=== PATIENT | female | born 1950 | race Caucasian/White ===

== ENCOUNTER 2020-07-05 10:02 | Outpatient (REF) | payer MEDICARE, OTHER, SELFPAY ==
[2020-07-05 11:23] LABS: MANUAL DIFF FLAG NO
[2020-07-05 11:45] LABS: Basophils Percent Auto 0.5 % (0-2); Eosinophils Absolute Auto 0.3 X10*3/uL (0.0-0.4); Eosinophils Percent Auto 5.3 % (0-4); Hematocrit 45.9 % (37-47); Hemoglobin 15.1 g/dl (12.0-16.0); Imm Gran Abs Auto 0.03 X10*3/uL (0.00-0.03); Imm Gran Pct Auto 0.5 % (0.0-0.4); Lymphocytes Absolute Auto 0.8 X10*3/uL (1.2-4.9); Mean Corpuscular HGB Conc 32.9 g/dl (31.0-35.0); Mean Corpuscular Volume 88.1 fL (80-98); Mean Platelet Volume 11.7 fL (9.4-12.3); Monocytes Absolute Auto 0.5 X10*3/uL (0.1-1.2); Monocytes Percent Auto 8.4 % (2-11); Neutrophils Absolute Auto 3.8 X10*3/uL (2.0-8.3); Neutrophils Percent Auto 70.3 % (45-73); Platelet Count 254 X10*3/uL (160-400); Red Blood Count 5.21 X10*6/uL (4.20-5.50); Red Cell Distribution Width 12.8 % (11.0-16.0); White Blood Count 5.5 X10*3/uL (4.8-10.8)
[2020-07-05 12:16] LABS: Thyroid Stimulating Hormone 2.38 uIU/mL (0.32-4.0)
[2020-07-05 12:20] LABS: Alanine Aminotransferase 14 U/L (0-31); Albumin Level 4.4 g/dL (3.5-5.0); Alkaline Phosphatase 139 U/L (39-117); Anion Gap 15 (12-20); Aspartate Amino Transferase 21 U/L (5-31); Bilirubin Total 0.6 mg/dL (0.0-1.0); Blood Urea Nitrogen 12 mg/dL (9-16); Calcium 9.2 mg/dL (8.4-10.2); Carbon Dioxide 26 mmol/L (22-29); Chloride 105 mmol/L (96-108); Cholesterol 195 mg/dL; Estimated Glomerular Filt Rate > 60; Glucose Random 95 mg/dL (60-115); HDL Cholesterol 57 mg/dL; LDL Cholesterol Calculated 111 mg/dl; Potassium 4.7 mmol/l (3.3-5.1); Sodium 141 mmol/L (135-145); Total Protein 6.6 g/dL (6.5-8.0); Triglycerides 136 mg/dL
== END 2020-07-05 10:03 | disposition home or self-care (01) ==
LOC: HO.HMGCLDS 10:02
PROVIDERS: PCP Internal Medicine; Visit Provider Internal Medicine
DX: M81.0 Age-related osteoporosis without current pathological fracture (principal); K21.9 Gastro-esophageal reflux disease without esophagitis; R25.1 Tremor, unspecified
CPT/HCPCS: 36415; 80053; 80061; 82306; 84443; 85025

== ENCOUNTER 2020-12-09 16:39 | Emergency (ER) | payer MEDICARE, OTHER, SELFPAY ==
--- NOTE | ~2020-12-09 | XR_ITS ---
EXAMINATION: RIGHT WRIST RADIOGRAPHS CLINICAL INFORMATION: Fall injury. Swelling. COMPARISON: No priors. TECHNIQUE: PA, oblique, and crosstable lateral radiographs of the right wrist. FINDINGS: Transverse fractures in the distal radial metaphysis one of which is complete in the other which is incomplete. Mild volar angulation at the fracture site. Additionally noted is a minimally displaced complete transverse fracture of the ulnar styloid process. There is mild dorsal subluxation of the ulna at the DRUJ. Wrist is approximated. Bones are osteopenic. Soft tissue swelling about the wrist. XR/XR hand wrist RT IMPRESSION: Transverse fractures through the distal radial metaphysis with mild volar angulation at the fracture site. Mildly displaced complete transverse fracture of the ulnar styloid process. Mild dorsal subluxation of the ulna at the DRUJ. Osteopenia.
--- NOTE | ~2020-12-09 | CT_ITS ---
EXAMINATION: CT HEAD WITHOUT CONTRAST CLINICAL INFORMATION: History of fall, trauma to the head. COMPARISON: Report from prior CT of the head done on 01/05/2010. TECHNIQUE: Contiguous axial imaging was performed from the skull base to vertex without intravenous administration of contrast. This CT examination was performed using dose optimization techniques as appropriate, variously including the following: *Automated exposure control *Adjustment of mA and/or kV according to patient size (this includes techniques or standardized protocols for targeted exams where dose is matched to indication/reason for exam; i.e. extremities or head) *Use of iterative reconstruction technique DLP: 666.99 mGy-cm FINDINGS: There is no evidence of acute intracranial hemorrhage or territorial infarction. No abnormal mass effect or midline shift is seen. Rios to white matter differentiation is well preserved. No extra-axial fluid collections are identified. The ventricles are normal in size. There is no abnormal attenuation within the brain parenchyma. Incidental note is made of tiny punctate calcification within the right basal ganglia The osseous structures and soft tissues are normal. The mastoid air cells and visualized portions of the paranasal sinuses are well aerated. CT/CT head/brain wo con IMPRESSION: No acute intracranial pathology.
[2020-12-09 16:47] VITALS: BP 133/78; BP 147/81; PULSE 73; PULSE 76; RESP 20; TEMP 36.7; O2SAT 98; BMI 26.6
[2020-12-09 17:30] VITALS: BP 158/91; PULSE 67; RESP 20; O2SAT 100
--- NOTE | 2020-12-09 17:36 | ED.FALL ---
HPI - Fall General Chief Complaint: Fall Stated Complaint: fall +headstrike/wrist deformity/hip pain+Collar Time Seen by Provider: 12/09/20 17:23 Source: EMS Mode of arrival: EMS Limitations: no limitations History of Present Illness HPI Narrative: 70-year-old female with a past medical history of essential tremor, gerd here with complaints of right wrist pain status post fall. Patient tells me she was throwing away traction the dumpster and her foot slipped and she fell on her right hip hitting the right side of her head and catching herself with her right wrist. There was no loss of consciousness. She denies neck pain, headache, vision changes, nausea, vomiting. She is complaining of some right wrist pain. She tells me initially the hip hurt but she does not have any pain now. No anticoagulation Related Data Previous Rx's Medication Instructions Recorded ibuprofen 600 mg PO Q8H PRN #20 tab 12/09/20 Allergies Allergy/AdvReac Type Severity Reaction Status Date / Time No Known Allergies Allergy Unverified 04/20/20 14:53 Review of Systems Review of Systems: Yes all other systems are reviewed and are negative Constitutional: Constitutional: Reports no additional constitutional complaints, Denies body ache(s), Denies chills, Denies fever(s), Denies headache(s) and Denies weakness Eyes: Eyes: Reports no additional eye complaints and Denies change in vision ENT: Reports system reviewed and no additional complaints, except as documented, Denies dizziness, Denies headache(s), Denies nasal congestion, Denies nasal discharge and Denies neck pain Cardiovascular: Cardiovascular: Reports no additional cardiovascular complaints, Denies chest pain, Denies leg edema and Denies dyspnea Respiratory: Respiratory: Reports no additional respiratory complaints, Denies cough and Denies dyspnea Gastrointestinal: Gastrointestinal: Reports no additional gastrointestinal complaints, Denies abdominal pain, Denies diarrhea, Denies nausea and Denies vomiting Genitourinary: Genitourinary: Reports no additional female genitourinary complaints and Denies urinary incontinence Musculoskeletal: Musculoskeletal: Reports no additional musculoskeletal complaints, Denies back pain, Reports arthralgias, Reports joint swelling, Reports limited range of motion, Denies neck pain, Denies numbness and Denies tingling Integumentary/Breasts: Skin/Breast: Reports system reviewed and no additional complaints, except as docu and Denies rash Neurologic: Reports system reviewed and no additional complaints, except as documented, Denies Abnormal speech present, Denies dizziness, Denies headache(s), Denies numbness, Denies tingling and Denies weakness PMFSH Past Medical History Attestation statement: The following information was validated with the patient. Source: old records reviewed and nursing notes reviewed Medical History Acid reflux Tremor Social History Social History Use of substances other than those prescribed or required for medical reasons: No Advance Directives: No Advance Directives Information Provided: Yes Physical Exam Vital Signs: Vital Signs: Last Vital Signs Temp 98.0 F 12/09/20 16:47 Pulse 67 12/09/20 17:30 Resp 20 12/09/20 17:30 BP 158/91 H 12/09/20 17:30 Pulse Ox 100 12/09/20 17:30 Body Mass Index 26.6 Const: General: cooperative, healthy appearing, comfortable and no acute distress Orientation/consciousness: patient oriented x3 Limitations: no limitations HENMT: Head: Yes normal to inspection Ears: hearing grossly normal bilaterally General nose exam: Normal external nose present Face and sinus: Yes normal facial exam Mouth: Normal oral and palatal mucosa present Throat: Yes posterior oropharynx normal Eyes: General: appearance normal, both eyes and all related structures Pupils: Equal, round and reactive pupils present Neck: Other: No midline tenderness, step-offs or deformities. Full range of motion Neck: Yes normal visual inspection Chest: Chest palpation & inspection: normal inspection of the chest Resp: Effort & Inspection: normal respiratory effort Auscultation: clear to auscultation bilaterally Cardio: Rate: regular rate Rhythm: regular rhythm Peripheral pulses: Peripheral pulses 2+ throughout GI: Inspection: Yes normal to inspection Palpation (GI): Soft to palpation and nontender Auscultation: normal bowel sounds Back/Spine/Pelvis: Thoracic/Lumbar Spine: thoracic and lumbar spine normal to inspection Skin: General skin exam: no rashes or lesions noted Neuro: General: patient oriented x3, no focal motor deficits and normal sensation to monofilament Cranial nerves: Yes CN's II-XII intact bilaterally, Yes Equal, round and reactive pupils present, Yes Bilaterally intact EOM present, Yes Nystagmus not present, Yes Normal facial strength present and Yes Midline tongue present Cognition (Neuro): normal cognition Speech: No Abnormal speech present Gait exam (Neuro): Normal gait present Motor exam (neuro): 5/5 motor strength present throughout Sensory Exam: Normal double simultaneous stimulation for sensation Extrem: Other: Tenderness and swelling to the right dorsal wrist with limited range of motion due to pain There is no tenderness, ecchymosis or deformity noted over the right hip. The patient has full range of motion with no difficulty. General: Yes normal to inspection Course Course Course Narrative: 70-year-old female here with right wrist pain status post mechanical fall. She did have a head injury with no loss of consciousness and no complaints of headache, vision changes, nausea, vomiting. Neurologically intact with no deficits. She does have swelling, deformity and limited range of motion to the right wrist. She initially had some right hip pain but now is complaining of no pain and has full range of motion with no obvious ecchymosis, or deformity Will check CT head, right wrist films 194-CT head negative. The x-ray of the right wrist and hand shows a transverse fracture through the distal radius with mild angulation and a mildly displaced complete transverse fracture of the ulnar styloid process. Patient was placed in a splint. Will refer to Orthopedics for follow-up. Patient refusing all narcotic medications although she appears uncomfortable. She will do motrin and tylenol at home and call with concerns. Reviewed worrisome signs and symptoms of when to return to the emergency department. Comfortable discharge home. Procedures Procedure Narrative Procedure Narrative: Sugar-tong splint with sling MDM - Fall Medical Records Attestation: I reviewed the patient's medical records. Lab Data Attestation: I reviewed the patient's lab results. Imaging Data CT scan - head: Attestation: I personally reviewed and interpreted this imaging study as follows: Radiologist's impression: FINDINGS: There is no evidence of acute intracranial hemorrhage or territorial infarction. No abnormal mass effect or midline shift is seen. Rios to white matter differentiation is well preserved. No extra-axial fluid collections are identified. The ventricles are normal in size. There is no abnormal attenuation within the brain parenchyma. Incidental note is made of tiny punctate calcification within the right basal ganglia The osseous structures and soft tissues are normal. The mastoid air cells and visualized portions of the paranasal sinuses are well aerated. CT/CT head/brain wo con IMPRESSION: No acute intracranial pathology. wrist/hand right xray: Attestation: I personally reviewed and interpreted this imaging study as follows: Radiologist's impression: [facility] [address]SGud ReportSigned Patient: Deb Esquivel AMR#: [id number]: 1950cct:[id number]/Sex: 70 / FADM Date: 12/09/20Loc: HO.EDAttending Dr: Ordering Physician: ELOY LARES NP Date of Service: 12/09/20 Procedure(s): XR hand wrist RT Accession Number(s): [id number] cc: ELOY LARES NP~ EXAMINATION: RIGHT WRIST RADIOGRAPHS CLINICAL INFORMATION: Fall injury. Swelling. COMPARISON: No priors. TECHNIQUE: PA, oblique, and crosstable lateral radiographs of the right wrist. FINDINGS: Transverse fractures in the distal radial metaphysis one of which is complete in the other which is incomplete. Mild volar angulation at the fracture site. Additionally noted is a minimally displaced complete transverse fracture of the ulnar styloid process. There is mild dorsal subluxation of the ulna at the DRUJ. Wrist is approximated. Bones are osteopenic. Soft tissue swelling about the wrist. XR/XR hand wrist RT IMPRESSION: Transverse fractures through the distal radial metaphysis with mild volar angulation at the fracture site. Mildly displaced complete transverse fracture of the ulnar styloid process. Mild dorsal subluxation of the ulna at the DRUJ. Osteopeni Discharge Plan Discharge Clinical Impression: Distal radial fracture, Fracture of right ulnar styloid Patient Disposition: Home, Self-Care Instructions: Wrist Fracture in Adults (ED) Additional Instructions: Ice, elevation Splint stays on all times. Do not get it wet Call Orthopedics Friday for your appointment Prescriptions: New ibuprofen 600 mg tablet 600 mg PO Q8H PRN (Reason: pain) Qty: 20 RF: 0 Referrals: Shahram Tapia MD [Physician] - 2 days
--- NOTE | 2020-12-09 17:50 | PC.NURSE ---
Pt alert, oriented, VSS, Fell yesterday landing on R arm + hip, no LOC, neuros intact, denies hitting head, no c/o headache at this time. Minimal movement of R arm, moves all other extremities at baseline. Pt out of room to X-RAY, waiting at bedside.
== END 2020-12-09 19:49 | disposition home or self-care (01) ==
PROVIDERS: Emergency Provider Emergency Medicine; PCP Internal Medicine
DX: S52.613A Displaced fracture of unspecified ulna styloid process, initial encounter for closed fracture (principal); S52.501A Unspecified fracture of the lower end of right radius, initial encounter for closed fracture; W01.198A Fall on same level from slipping, tripping and stumbling with subsequent striking against other object, initial encounter; Y93.89 Activity, other specified; Y92.017 Garden or yard in single-family (private) house as the place of occurrence of the external cause; Y99.9 Unspecified external cause status
CPT/HCPCS: 29125; 70450; 73110; 73130; 99284

== ENCOUNTER 2020-12-11 10:08 | Outpatient (REF) | payer MEDICARE, OTHER, SELFPAY ==
--- NOTE | ~2020-12-11 | XR_ITS ---
EXAMINATION: XR WRIST, RIGHT CLINICAL INFORMATION: Wrist pain. COMPARISON: None. TECHNIQUE: PA, lateral, and oblique views of the right wrist. FINDINGS: Comminuted fracture distal radius and ulnar styloid process stabilized with right wrist in a hard cast. The fracture fragments are in alignment. XR/XR wrist RT min 3V IMPRESSION: Well aligned distal radial and ulnar styloid process fracture status post stabilization of right wrist in a hard cast.
== END 2020-12-11 10:09 | disposition home or self-care (01) ==
LOC: HO.HOSX 10:08
PROVIDERS: Visit Provider Physician Assistant
DX: S52.501A Unspecified fracture of the lower end of right radius, initial encounter for closed fracture (principal); S52.613A Displaced fracture of unspecified ulna styloid process, initial encounter for closed fracture
CPT/HCPCS: 25600; 29075; 73110; 99202

== ENCOUNTER 2021-01-08 07:57 | Outpatient (REF) | payer MEDICARE, OTHER, SELFPAY ==
--- NOTE | ~2021-01-08 | XR_ITS ---
EXAMINATION: XR WRIST, RIGHT CLINICAL INFORMATION: Fractures radius and ulna. Followup. COMPARISON: Radiographs right wrist 12/11/2020 and 12/09/2020 TECHNIQUE: Radiographs right wrist are obtained in 4 views. FINDINGS: Transverse fracture distal radial metaphysis is still visible. There is volar angulation distal fracture fragment, more prominent than on prior study, possibly related to positioning. The distal ulna shows dorsal bowing, and there is a fracture at the base of ulnar styloid which is still visible. No significant callus formation. No new fracture or destructive process. XR/XR wrist RT 2V IMPRESSION: 1. Distal radial fracture still visible. Volar angulation fracture site more prominent, possibly related to positioning. 2. Dorsal bowing distal ulna. Fracture base of ulnar styloid still visible. 3. No significant callus formation.
--- NOTE | ~2021-01-08 | XR_ITS ---
EXAMINATION: XR WRIST, RIGHT CLINICAL INFORMATION: Fractures radius and ulna. Followup. COMPARISON: Radiographs right wrist 12/11/2020 and 12/09/2020 TECHNIQUE: Radiographs right wrist are obtained in 4 views. FINDINGS: Transverse fracture distal radial metaphysis is still visible. There is volar angulation distal fracture fragment, more prominent than on prior study, possibly related to positioning. The distal ulna shows dorsal bowing, and there is a fracture at the base of ulnar styloid which is still visible. No significant callus formation. No new fracture or destructive process. XR/XR wrist RT min 3V IMPRESSION: 1. Distal radial fracture still visible. Volar angulation fracture site more prominent, possibly related to positioning. 2. Dorsal bowing distal ulna. Fracture base of ulnar styloid still visible. 3. No significant callus formation.
== END 2021-01-08 07:58 | disposition home or self-care (01) ==
LOC: HO.HOSX 07:57
PROVIDERS: Visit Provider Physician Assistant
DX: S52.613A Displaced fracture of unspecified ulna styloid process, initial encounter for closed fracture (principal); S52.501A Unspecified fracture of the lower end of right radius, initial encounter for closed fracture
CPT/HCPCS: 73100; 73110; 99212

== ENCOUNTER 2021-01-15 07:42 | Outpatient (REF) | payer MEDICARE, OTHER, SELFPAY ==
--- NOTE | ~2021-01-15 | XR_ITS ---
EXAMINATION: XR WRIST, RIGHT CLINICAL INFORMATION: Fracture distal radius. Follow-up. COMPARISON: 01/08/2021 right wrist. TECHNIQUE: PA, lateral, and oblique views of the right wrist. FINDINGS: Again visualized is volar angulated distal radial fracture nondisplaced ulnar styloid process fracture. There is no callus formation seen yet. There is mild dorsal soft tissue swelling. XR/XR wrist RT min 3V IMPRESSION: No signal change in the distal radial fracture with mild volar angulation. No callus formation seen. Displaced ulnar styloid process fracture is noted as well. It is unchanged.
== END 2021-01-15 07:43 | disposition home or self-care (01) ==
LOC: HO.HOSX 07:42
PROVIDERS: Visit Provider Physician Assistant
DX: S52.501A Unspecified fracture of the lower end of right radius, initial encounter for closed fracture (principal); S52.613A Displaced fracture of unspecified ulna styloid process, initial encounter for closed fracture; M25.641 Stiffness of right hand, not elsewhere classified
CPT/HCPCS: 73110; 99212

== ENCOUNTER 2021-01-31 14:13 | Outpatient (REF) | payer MEDICARE, OTHER, SELFPAY ==
--- NOTE | ~2021-01-31 | XR_ITS ---
EXAMINATION: XR WRIST, RIGHT CLINICAL INFORMATION: Right wrist pain COMPARISON: January 15, 2021 and studies dating back to December 11, 2020 TECHNIQUE: PA, lateral, and oblique views of the right wrist. FINDINGS: There is diffuse osteopenia of the right hand and wrist. There is no change in alignment of distal right radial fracture with volar angulation of the distal fracture fragment. There is again noted to be unchanged positioning of ulnar styloid fracture. There is dorsal bowing of the distal ulna. Since previous study there is some increased sclerosis about the fracture site but without definite bony union appreciated. XR/XR wrist RT min 3V IMPRESSION: No change in alignment of distal radial and ulnar fractures. Dorsal bowing of the distal ulna no definite bony union appreciated with fracture line still being evident.
== END 2021-01-31 14:14 | disposition home or self-care (01) ==
LOC: HO.HOSX 14:13
PROVIDERS: Visit Provider Orthopaedic Surgery
DX: S52.501D Unspecified fracture of the lower end of right radius, subsequent encounter for closed fracture with routine healing (principal); S52.613D Displaced fracture of unspecified ulna styloid process, subsequent encounter for closed fracture with routine healing; M25.641 Stiffness of right hand, not elsewhere classified
CPT/HCPCS: 73110; 99212

== ENCOUNTER → 2021-03-05 14:04 | Outpatient (BNVA) | payer MEDICARE, OTHER, SELFPAY | PROVIDERS: PCP Internal Medicine; Visit Provider Orthopaedic Surgery | DX: S52.501D Unspecified fracture of the lower end of right radius, subsequent encounter for closed fracture with routine healing (principal); S52.613D Displaced fracture of unspecified ulna styloid process, subsequent encounter for closed fracture with routine healing; M25.649 Stiffness of unspecified hand, not elsewhere classified | CPT/HCPCS: 99212 ==

== ENCOUNTER 2021-05-03 11:00 | Outpatient (RCR) | payer MEDICARE, OTHER, SELFPAY ==
--- NOTE | 2021-05-03 12:06 | MHC.OT.DC ---
[address] [phone] F: [phone] Occupational Therapy Discharge Note Provider: Kat Castellano Diagnosis: Right Ulnar styloid and right DR fx Date of Surgery: Date of Evaluation: 01/10/21 Date of Discharge: 05/03/21 Treatments to Date: 30 Cancellations to Date: 2 No Shows to Date: 0 Discharge Status: Achieved Goals Improved Function Independent with HEP Patient Elected to Stop Discharge Summary: Slow improving ROM and strength due to pt over [facility] with working on forearm ,wrist and digits .ROM and strength now WFL. Pt reports mild difficulty with daily activities. Pt maintained supination since last appt. Now 45-49 deg. Plateau in wrist ext at 45 deg painfree, wrist flex 55 deg with low ulnar wrist pain. Improved technique with HEP for ROM and strengthening. supination . Improved tecth with theraband ext and digit flexion ex after practice. Right occupational therapy specialist at 15 lb . Able to lift and carry 5 lb safely. She reports full use of her right dominant hand with dressing , feeding herself ect with mild difficulty due to limited forearm rotation. Electronically Signed By: Janet Baer OT CHT CLT Reviewed/agree with student documentation: N/A Therapist: Please Sign and return to therapist, thank you for your referral.
== END 2021-05-03 12:06 | disposition home or self-care (01) ==
LOC: HO.OT 11:00
PROVIDERS: Visit Provider Physician Assistant
DX: S52.613A Displaced fracture of unspecified ulna styloid process, initial encounter for closed fracture (principal); S52.501A Unspecified fracture of the lower end of right radius, initial encounter for closed fracture; M25.539 Pain in unspecified wrist; M25.649 Stiffness of unspecified hand, not elsewhere classified
CPT/HCPCS: 29125; 29130; 97014; 97033; 97035; 97110; 97140; 97166; 97530; 97760

== ENCOUNTER 2022-08-20 08:09 | Outpatient (REF) | payer MEDICARE, OTHER, SELFPAY ==
[2022-08-20 11:49] LABS: MANUAL DIFF FLAG NO
[2022-08-20 12:03] LABS: Basophils Absolute Auto 0.1 X10*3/uL (0.0-0.2); Eosinophils Absolute Auto 0.5 X10*3/uL (0.0-0.4); Eosinophils Percent Auto 7.5 % (0-4); Hematocrit 46.5 % (37.0-47.0); Hemoglobin 14.9 g/dl (12.0-16.0); Imm Gran Abs Auto 0.02 X10*3/uL (0.00-0.03); Imm Gran Pct Auto 0.3 % (0.0-0.4); Lymphocytes Absolute Auto 1.1 X10*3/uL (1.2-4.9); Lymphocytes Percent Auto 18.3 % (20-40); Mean Corpuscular Hemoglobin 28.2 pg (27.0-33.0); Mean Corpuscular Volume 87.9 fL (80.0-98.0); Mean Platelet Volume 11.6 fL (9.4-12.3); Monocytes Absolute Auto 0.7 X10*3/uL (0.1-1.2); Monocytes Percent Auto 11.6 % (2-11); Neutrophils Absolute Auto 3.8 x10*3/uL (2.0-8.3); Neutrophils Percent Auto 61.3 % (45-73); Platelet Count 249 X10*3/uL (160-400); Red Blood Count 5.29 X10*6/uL (4.20-5.50); Red Cell Distribution Width 12.9 % (11.0-16.0); White Blood Count 6.1 X10*3/uL (4.8-10.8)
[2022-08-20 12:45] LABS: Alanine Aminotransferase 12 U/L (0-31); Albumin Level 4.1 g/dL (3.5-5.0); Alkaline Phosphatase 131 U/L (39-117); Anion Gap 11 (12-20); Aspartate Amino Transferase 20 U/L (5-31); Bilirubin Total 0.5 mg/dL (0.0-1.0); Blood Urea Nitrogen 23 mg/dL (9-16); Calcium 9.2 mg/dL (8.4-10.2); Carbon Dioxide 27 mmol/L (22-29); Chloride 107 mmol/L (96-108); Cholesterol 190 mg/dL; Estimated Glomerular Filt Rate > 60; Glucose Fasting 96 mg/dL (60-99); HDL Cholesterol 61 mg/dL; LDL Cholesterol Calculated 112 mg/dl; Potassium 4.2 mmol/L (3.3-5.1); Sodium 141 mmol/L (135-145); Thyroid Stimulating Hormone 3.55 uIU/mL (0.32-4.0); Total Protein 6.3 g/dL (6.5-8.0); Triglycerides 87 mg/dL; Vitamin D 25-OH Total 35.7 ng/mL (>30)
== END 2022-08-20 08:10 | disposition home or self-care (01) ==
LOC: HO.HMGCLDS 08:09
PROVIDERS: PCP Internal Medicine; Visit Provider Internal Medicine
DX: Z00.00 Encounter for general adult medical examination without abnormal findings (principal); M81.0 Age-related osteoporosis without current pathological fracture; K21.9 Gastro-esophageal reflux disease without esophagitis; R25.1 Tremor, unspecified
CPT/HCPCS: 36415; 80053; 80061; 82306; 84443; 85025

== ENCOUNTER 2022-12-02 11:07 | Outpatient (REF) | payer OTHER, MEDICARE, SELFPAY ==
[2022-12-02 11:23] LABS: MANUAL DIFF FLAG NO
[2022-12-02 12:30] LABS: Basophils Absolute Auto 0.1 X10*3/uL (0.0-0.2); Basophils Percent Auto 0.8 % (0-2); Eosinophils Absolute Auto 0.4 X10*3/uL (0.0-0.4); Eosinophils Percent Auto 6.3 % (0-4); Hematocrit 46.9 % (37.0-47.0); Hemoglobin 15.2 g/dl (12.0-16.0); Imm Gran Abs Auto 0.02 X10*3/uL (0.00-0.03); Imm Gran Pct Auto 0.3 % (0.0-0.4); Lymphocytes Absolute Auto 0.9 X10*3/uL (1.2-4.9); Lymphocytes Percent Auto 14.5 % (20-40); Mean Corpuscular HGB Conc 32.4 g/dl (31.0-35.0); Mean Corpuscular Hemoglobin 28.8 pg (27.0-33.0); Mean Platelet Volume 11.9 fL (9.4-12.3); Monocytes Absolute Auto 0.6 X10*3/uL (0.1-1.2); Monocytes Percent Auto 9.6 % (2-11); Neutrophils Absolute Auto 4.3 x10*3/uL (2.0-8.3); Neutrophils Percent Auto 68.5 % (45-73); Platelet Count 259 X10*3/uL (160-400); Red Blood Count 5.27 X10*6/uL (4.20-5.50); White Blood Count 6.3 X10*3/uL (4.8-10.8)
[2022-12-02 13:22] LABS: Alanine Aminotransferase 13 U/L (0-31); Albumin Level 4.4 g/dL (3.5-5.0); Alkaline Phosphatase 118 U/L (39-117); Anion Gap 15 (12-20); Aspartate Amino Transferase 21 U/L (5-31); Bilirubin Total 0.8 mg/dL (0.0-1.0); Blood Urea Nitrogen 14 mg/dL (9-16); Calcium 10.3 mg/dL (8.4-10.2); Carbon Dioxide 26 mmol/L (22-29); Chloride 108 mmol/L (96-108); Estimated Glomerular Filt Rate > 60; Glucose Random 89 mg/dL (60-115); Potassium 5.4 mmol/L (3.3-5.1); Sodium 144 mmol/L (135-145); Total Protein 6.6 g/dL (6.5-8.0)
== END 2022-12-02 11:08 | disposition home or self-care (01) ==
LOC: HO.LAB 11:07
PROVIDERS: PCP Internal Medicine; Visit Provider Internal Medicine
DX: R25.1 Tremor, unspecified (principal)
CPT/HCPCS: 36415; 80053; 85025

== ENCOUNTER 2023-01-09 11:12 | Outpatient (REF) | payer MEDICARE, OTHER, SELFPAY ==
[2023-01-09 13:04] LABS: Alanine Aminotransferase 14 U/L (0-31); Albumin Level 4.4 g/dL (3.5-5.0); Alkaline Phosphatase 138 U/L (39-117); Anion Gap 13 (12-20); Aspartate Amino Transferase 22 U/L (5-31); Bilirubin Total 0.5 mg/dL (0.0-1.0); Blood Urea Nitrogen 16 mg/dL (9-16); Calcium 9.8 mg/dL (8.4-10.2); Carbon Dioxide 26 mmol/L (22-29); Chloride 106 mmol/L (96-108); Estimated Glomerular Filt Rate > 60; Glucose Random 88 mg/dL (60-115); Potassium 4.9 mmol/L (3.3-5.1); Sodium 140 mmol/L (135-145); Total Protein 6.7 g/dL (6.5-8.0)
== END 2023-01-09 11:13 | disposition home or self-care (01) ==
LOC: HO.LAB 11:12
PROVIDERS: PCP Internal Medicine; Visit Provider Internal Medicine
DX: R25.1 Tremor, unspecified (principal); K21.9 Gastro-esophageal reflux disease without esophagitis; M81.0 Age-related osteoporosis without current pathological fracture
CPT/HCPCS: 36415; 80053

== ENCOUNTER 2023-11-12 07:24 | Outpatient (REF) | payer MEDICARE, OTHER, SELFPAY ==
[2023-11-12 07:44] LABS: MANUAL DIFF FLAG NO
[2023-11-12 08:29] LABS: Basophils Absolute Auto 0.1 X10*3/uL (0.0-0.2); Basophils Percent Auto 1.1 % (0-2); Eosinophils Absolute Auto 0.5 X10*3/uL (0.0-0.4); Eosinophils Percent Auto 8.1 % (0-4); Hematocrit 45.4 % (37.0-47.0); Hemoglobin 15.1 g/dl (12.0-16.0); Imm Gran Abs Auto 0.01 X10*3/uL (0.00-0.03); Imm Gran Pct Auto 0.2 % (0.0-0.4); Lymphocytes Absolute Auto 1.1 X10*3/uL (1.2-4.9); Lymphocytes Percent Auto 20.5 % (20-40); Mean Corpuscular HGB Conc 33.3 g/dl (31.0-35.0); Mean Corpuscular Hemoglobin 28.9 pg (27.0-33.0); Mean Platelet Volume 11.7 fL (9.4-12.3); Monocytes Absolute Auto 0.6 X10*3/uL (0.1-1.2); Neutrophils Absolute Auto 3.3 x10*3/uL (2.0-8.3); Neutrophils Percent Auto 59.1 % (45-73); Platelet Count 241 X10*3/uL (160-400); Red Blood Count 5.22 X10*6/uL (4.20-5.50); Red Cell Distribution Width 13.2 % (11.0-16.0); White Blood Count 5.6 X10*3/uL (4.8-10.8)
[2023-11-12 08:55] LABS: Alanine Aminotransferase 13 U/L (0-31); Albumin Level 4.2 g/dL (3.5-5.0); Alkaline Phosphatase 126 U/L (39-117); Anion Gap 13 (12-20); Aspartate Amino Transferase 20 U/L (5-31); Bilirubin Total 0.6 mg/dL (0.0-1.0); Blood Urea Nitrogen 19 mg/dL (9-16); Calcium 9.5 mg/dL (8.4-10.2); Carbon Dioxide 28 mmol/L (22-29); Chloride 107 mmol/L (96-108); Cholesterol 203 mg/dL (<200); Estimated Glomerular Filt Rate > 60; Glucose Fasting 94 mg/dL (60-99); HDL Cholesterol 65 mg/dL (>40); LDL Cholesterol Calculated 122 mg/dL (<100); Potassium 4.6 mmol/L (3.3-5.1); Sodium 143 mmol/L (135-145); Total Protein 6.7 g/dL (6.5-8.0); Triglycerides 81 mg/dL (<150)
[2023-11-12 09:12] LABS: Vitamin D 25-OH Total 42.7 ng/mL (>30)
== END 2023-11-12 07:25 | disposition home or self-care (01) ==
LOC: HO.LAB 07:24
PROVIDERS: PCP Internal Medicine; Visit Provider Internal Medicine
DX: M81.0 Age-related osteoporosis without current pathological fracture (principal); R12 Heartburn; K21.9 Gastro-esophageal reflux disease without esophagitis; R25.1 Tremor, unspecified
CPT/HCPCS: 36415; 80053; 80061; 82306; 84443; 85025

== ENCOUNTER 2024-11-02 13:09 | Outpatient (AMB) | payer MEDICARE, OTHER, SELFPAY ==
[2024-11-02 13:11] VITALS: BP 110/60; PULSE 62; RESP 16; TEMP 36.4; O2SAT 95; BMI 26.4
--- NOTE | 2024-11-02 13:11 | A.OFFPC_ITS ---
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 Required: No Accompanied by: Self / Same As Patient Allergies No Known Allergies Allergy (Verified 11/02/24 13:37) Medication List - Last Reconciled 11/02/24 by Josefina Quiñones PA-C multivitamin 1 tab PO DAILY omeprazole 20 mg PO DAILY propranolol 40 mg PO BID Tobacco use date assessed: 11/02/24 Fall risk assessment: No Falls in past year Last assessed Fall Risk: 11/02/24 Dental Screening Dental Screen Date: 11/02/24 Did you have a dental visit in the last 12 months?: Yes Did you have a dental problem in the last 6 months where you did not have access to dental care?: No PFSH Medical History Viral wart on toe Internal hemorrhoids Sigmoid diverticulosis History of mammogram (~09/02/24) Osteoporosis Achilles tendonitis Osteoarthritis of neck Traumatic pneumothorax Psoriasis Menopause Hay fever Seasonal allergies Hypertension Acid reflux Tremor Surgical History History of colonoscopy (~09/2017) H/O removal of cyst History of tonsillectomy Family History Father Cancer Mother Cancer Social History Housing: House Alcohol intake: current Alcohol intake frequency: does not drink Patient Tobacco Use Status: Never used Tobacco service: No Current occupational status: disabled 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 1. Little interest or pleasure in doing things: not at all 2. Feeling down, depressed, or hopeless: not at all 3. Trouble falling or staying asleep, or sleeping too much: not at all 4. Feeling tired or having little energy: not at all 5. Poor appetite or overeating: not at all 6. Feeling bad about yourself - or that you are a failure or have let yourself or your family down: not at all 7. Trouble concentrating on things, such as reading the newspaper or watching television: not at all 8. Moving or speaking so slowly that other people could have noticed. Or the opposite - being so fidgety or restless that you have been moving around a lot more than usual: not at all 9. Thoughts that you would be better off or of hurting yourself in some way: not at all Total score: 0 Depression Screening Interpretation: Negative Depression Screening Done: Yes 74056 - PHQ-9 Billing: Yes Source: Developed by Drs. Jerzy Lockhart, Jeanine Valdivia, Enio Rosario and colleagues, with an educational ryann from [employer]. Thrive Questionnaire Date Thrive assessed: 11/02/24 I am a: Patient What is your living situation today?: I have a steady place to live Within the past 12 months, did the food you bought not last and you didn't have the money to get more?: Never true Within the past 12 months, did you worry whether your food would run out before you got money to buy more?: Never true Do you have trouble paying for medicines?: No Do you have trouble getting transportation to medical appointments?: No Do you have trouble paying your heating and electricity bill?: No Do you have trouble taking care of your child, family member or friend?: No Do you have trouble with day-to-day activities such as bathing, preparing meals, shopping, managing finances, etc.?: No Are you currently unemployed and looking for a job?: No Are you interested in more education?: No Please select the resources that you would like help with: None THRIVE Score: 0 AUDIT C Alcohol Use Questionnaire (AUDIT-C) 1. How often do you have a drink containing alcohol?: Never 3. How often do you have six or more drinks on one occasion?: Never Total Score: 0 Score Reviewed/Action Taken: No STAN-7 AMB Questionnaire STAN-7 Date STAN - 7 assessed: 11/02/24 Feeling nervous, anxious, or on edge: 0 = Not at all Not being able to stop or control worryin = Not at all Worrying too much about different things: 0 = Not at all Trouble relaxin = Not at all Being so restless that it is hard to sit still: 0 = Not at all Becoming easily annoyed or irritable: 0 = Not at all Feeling afraid as if something awful might happen: 0 = Not at all Total STAN-7 score (0-4 normal; 5-9 mild; 10-14 moderate; 15-21 severe): 0 Source: Developed by Drs. Jerzy Lockhart, Jeanine Valdivia, Enio Rosario and colleagues, with an educational ryann from [employer]. TSAN-7 Assessment Billing STAN-7 Assessment Tool: STAN-7 Assessment 03807 Physical exam (Primary Care) Vital Signs: Last Vital Signs Temp 97.6 F 11/02/24 13:11 Pulse 62 11/02/24 13:11 Resp 16 11/02/24 13:11 BP 110/60 11/02/24 13:11 Pulse Ox 95 11/02/24 13:11 BMI result Body Mass Index 26.4 Tobacco/Smoking Status: Tobacco use Status Tobacco use date assessed 11/02/24 11/02/24 13:19 Patient Tobacco Use Status Never used Tobacco 11/02/24 13:19 PHQ-9: PHQ-9 Score PHQ-9: Total score 0 11/02/24 13:19 Depression Screening Interpretation: Negative Thrive Assessment: Date of Thrive Assessment Date Thrive assessed 11/02/24 11/02/24 13:19 Coding Level of Care Code New Pt Level 4 (34568) Complex EM visit Add On G2211 Diagnoses Tremor R25.1 Hypertension I10 Seasonal allergies J30.2 Psoriasis L40.9 Osteoarthritis of neck M47.812 Viral wart on toe B07.9 Additional Codes PHQ-9 - 28925 - PHQ-9 Billing: Yes ([id number]) STAN-7 Assessment Billing - STAN-7 Assessment Tool: STAN-7 Assessment 59448 ([id number]) Assessment & Plan Assessment & Plan (1) Tremor: Code(s): R25.1 - Tremor, unspecified Category: Medical Plan: Stable tremor; avoidance of caffeine and chocolate continues to be advised due to trigger identification. (2) Hypertension: Code(s): I10 - Essential (primary) hypertension Category: Medical Plan: Blood pressure is properly managed with current propranolol therapy. No adjustments needed at this time. (3) Seasonal allergies: Code(s): J30.2 - Other seasonal allergic rhinitis Category: Medical Plan: Continue symptomatic management as needed, with no changes in treatment required. (4) Psoriasis: Comment: Scalp Code(s): L40.9 - Psoriasis, unspecified Category: Medical Plan: Current management with specialized shampoo continues. (5) Osteoarthritis of neck: Code(s): M47.812 - Spondylosis without myelopathy or radiculopathy, cervical region Category: Medical Plan: Managed with conservative measures, with no new interventions deemed necessary. (6) Viral wart on toe: Code(s): B07.9 - Viral wart, unspecified Category: Medical Plan: Will prescribe see list salicylic acid topical and referred to Podiatry. Condition is chronic and stable continue to monitor. Plan Plan Patient was informed and verbally consented to the use of an ambient scribe for clinic note documentation during this visit. 1. Spondylosis without myelopathy or radiculopathy, cervical region Managed with conservative measures, with no new interventions deemed necessary. 2. Acid Reflux Omeprazole regimen to be continued without changes. 3. Sigmoid Diverticulosis Asymptomatic management ongoing, without current treatment changes. 4. Essential Hypertension Blood pressure is properly managed with current propranolol therapy. No adj ustments needed at this time. 5. Psoriasis, unspecified Current management with specialized shampoo continues. 6. Osteoporosis Bone density evaluation scheduled; no current interventions adjusted. 7. Tremor Stable tremor; avoidance of caffeine and chocolate continues to be advised due to trigger identification. 8. Internal Hemorrhoids No active symptoms; no treatment needed currently. 9. Seasonal Allergies Continue symptomatic management as needed, with no changes in treatment required. Discussion Notes I reviewed the patient's history of essential hypertension, currently well- controlled on propranolol. During the visit, we discussed the stable nature of her tremor, which is exacerbated by caffeine and chocolate. I advised the patient to avoid these substances to mitigate symptoms. The patient's osteoarthritis, seasonal allergies, and psoriasis are managed with current treatments and do not require changes. We addressed routine screenings, includi ng a recent normal mammogram and the collection of past bloodwork results. The patient expressed curiosity about the frequency of mammograms with advancing age, and I informed her of standard recommendations. Continuous monitoring of her cholesterol levels, with emphasis on lifestyle adjustments, was advised given previous elevations. The patient consented to these ongoing management strategies and potential for future screenings such as bone density testing. Follow-up will be arranged based on the results of pending investigations, particularly related to osteoporosis monitoring. Orders: Orders C Reactive Protein Today Z00.00 - Encounter for general adult medical examination without abnormal findings Complete Blood Count Auto Diff Today Z00.00 - Encounter for general adult medical examination without abnormal findings Magnesium Today Z00.00 - Encounter for general adult medical examination without abnormal findings TSH reflex Free T4 Today Z00.00 - Encounter for general adult medical examinati on without abnormal findings Vitamin D 25-OH Total Today Z00.00 - Encounter for general adult medical examination without abnormal findings Vitamin B12 and Folate Today Z00.00 - Encounter for general adult medical examination without abnormal findings Vitamin A Today Z00.00 - Encounter for general adult medical examination without abnormal findings Vitamin B1 Today Z00.00 - Encounter for general adult medical examination without abnormal findings XR DEXA axial skeleton Today M81.0 - Age-related osteoporosis without current pathological fracture Comprehensive [place]. Panel Fast Today Z00.00 - Encounter for general adult medical examination without abnormal findings Erythrocyte Sedimentation Rate Today Z00.00 - Encounter for general adult medical examination without abnormal findings Hemoglobin A1c Today Z00.00 - Encounter for general adult medical examination without abnormal findings Lipid Panel Today Z00.00 - Encounter for general adult medical examination without abnormal findings Liver Panel Today Z00.00 - Encounter for general adult medical examination without abnormal findings Parathyroid Hormone Intact Today Z00.00 - Encounter for general adult medical examination without abnormal findings Zinc Today Z00.00 - Encounter for general adult medical examination without abnormal findings Referrals Podiatry Referral B07.9 - Viral wart, unspecified Medications: New salicylic acid 3% 1 appl topical BID PRN 30 grams 3RF skin irritation Patient Instructions: Patient Instructions - Continue taking prescribed medications as directed, including omeprazole and propranolol. - Avoid caffeine and chocolate to manage tremor symptoms. - Maintain current management of osteoarthritis, seasonal allergies, psoriasis, and acid reflux. - Follow up on bone density test scheduling. - Adhere to routine screenings, including blood work and mammograms. - The tunneling machine operator will contact you for an appointment regarding your foot concerns. - Ensure blood work is done when fasting. - Monitor symptoms and seek medical advice if any new or concerning symptoms de velop. Scribe Plan - Not visible on output: History of Present Illness The patient is a 74-year-old female presenting for a routine six-month follow- up. She has a well-documented history of essential hypertension, which is under control with propranolol. The patient's tremor is noted to worsen with caffeine and chocolate, prompting dietary modifications. Osteoarthritis of the neck and seasonal allergies are stabilized with episodic management, and a specific shampoo is used to manage psoriasis of the scalp. Acid reflux is treated with omeprazole, and osteoporosis is a noted diagnosis without recent testing. Internal hemorrhoids and sigmoid diverticulosis were previously identified via colonoscopy. The patient maintains routine screening, with her last mammogram showing no abnormalities. Blood tests indicate a chronically elevated alkaline phosphatase, while other liver enzymes and renal function remain normal. Notably, previous cholesterol levels require ongoing monitoring due to elevations. Social History - The patient is retired and lives with her and 40-year-old son. - Reports no employment activity as she is retired. - The patient has no pets. - Denies any current work commitments. Review of Systems - Musculoskeletal: Denies swelling of extremities. - Cardiorespiratory: Denies chest pain, shortness of breath. - Gastrointestinal: Denies abdominal pain; no changes in bowel habits like black or bloody stools. - Neurological: Denies numbness, dizziness. - General: Denies weakness, changes in vision. - Nightly rest: Reports adequate sleep. Physical Exam Appearance: Alert. Oriented X3. No acute distress. Head: Normal external exam. Normocephalic. Atraumatic. Eyes: Pupils are equal, round, and reactive to light. Extraocular movements intact. Conjunctiva and sclera normal. Eyelids normal. Ears: External auditory canal normal. Tympanic membranes normal. Throat: Pharynx normal. Uvula midline. Moist mucous membranes. Neck: Normal inspection. Neck supple. Full range of motion. No adenopathy. Thyroid Normal. No meningeal signs. No neck mass noted. Cardiovascular: Normal heart rate and rhythm. Heart sound normal. No murmurs noted. Pulses normal throughout. Respiratory: No respiratory distress. Painless inspiration. Breath sounds normal. No wheezes/rales/rhonchi noted. Chest nontender. No accessory muscle usage noted or decreased air movement noted. Abdomen: Soft and nontender. Bowel sounds normal in all 4 quadrants. No distention noted. No organomegaly noted. No visible injury noted. Back: No costovertebral angle tenderness. Full range of motion noted. Skin: Skin warm and dry. Normal skin color. Normal skin turgor. No rashes/lesions/lacerations noted. Blister noted on foot. Extremities: No lower extremity edema. Extremities exhibit normal range of motion. Extremities nontender. Neuro: Oriented X 3. No motor deficit. No sensory deficit. Reflexes normal. Tremor noted, worsens with caffeine or chocolate consumption. Results - Labs (November 2023): Normal CBC, H&H, and platelets. Elevated alkaline phosphatase at 126. Normal kidney function and thyroid function. Cholesterol at 233 mg/dL, LDL at 122 mg/dL, HDL at 65 mg/dL. Normal vitamin D levels. - Screening: Mammogram (September 02, 2024), normal. Previous colonoscopy (September 2017) revealed sigmoid diverticulosis.
--- OUTSIDE RECORDS SUMMARY | 2024-11-02 15:24 | XMS_ITS | Patient Health Record ---
Author Organization [facility] Address [address] [place] [address] Care Team Providers Care Filling Station Laborer Name Role Phone Shad (RETIRED) Jerzy LASSITER Primary Care Provid er Unavailable Jerzy Parker Unavailable [phone] Allergies No Known Allergies Reason For Referral No Information Medications Medication SIG (Take, Route, Frequency, Duration) Notes Start Date End Date Status Multi Vitamin/Minerals - 1 Orally QD Active Calcium 500 + D 500-125 MG-UNIT 1 tablet with food Orally Once a day Active Propranolol HCl 40 MG Oral for 90 Active Jwalwgjd-Ddzmqaqfj-Rnkbtaf h 0.1 % 1 application Ophthalmic as directed Active Omeprazole 20 MG 1 capsule Orally twi ce a day Active Immunizations Vaccine Route Administration Date Status Comme nts Flu vaccine no Preserv 3 and > Unknown 05/13/2017 Admin istered Influenza Unknown 06/04/2023 Administered Social History Tobacco Use: Social History Observation Description Date Details (start date - stop date) Never Smoker NA - NA Tobacco Use/Smoking Question Answer Notes Patient is a nonsmoker Alcohol Screen Question Answer Notes Did you have a drink containing alcohol in the p ast year? No Points 0 Interpretation Negative Section Notes: Nonsmoker; no sig alcohol Nonsmoker; no sig alcohol Problems Problem Type SNOMED Code ICD Code Onset Dates Problem Status W/U Status Risk Notes Problem 351738789 Encounter for screening for malignant neoplasm of colon (Z12.11) Active confirmed Problem 881376367 Gastroesophageal reflux disease, esophagitis presence not specified (K21.9) Active confirmed Problem 416436233 Abnormal CT scan , colon (R93.3) Active confirmed Problem 989326336 Abdominal pain, left lower quadrant (R10.32) Active confirmed Plan Of Treatment Future Test Test Name Order Date UPPER GI ENDOSCOPY 08/08/2017 COLONOSCOPY 08/08/2017 Insurance Providers Payer Name Payer Address Payer Phone Subscriber Number Group Number Insured Name Patient Relationship to Insured Coverage Start Date Coverage End Date MEDICARE OF [place] [address] [place] [id number] [phone] [id number] BRONSON ANDERSON Self - patient is the insured [facility] [address] [place] [phone] [id number] BRONSON ANDERSON Self - patient is the insured Medical (General) History Medical History History ICD Code Denies [place],DM,CVA,Lung disease,renal dise ase Tremors involving the head for 15 years GERD-upper endoscopy in 2017 revealed a small hiatal hernia but was negative for esophagitis and Pop's esophagus; benign gastric polyps Neg. screening colonoscopy --- sigmoid diverticulosis and internal hemorrhoids Negative screening colonoscopy in 2017 Surgical History Surgery Date(Month/Year)
--- OUTSIDE RECORDS SUMMARY | 2024-11-02 15:24 | XMS_ITS ---
Author Organization [facility] Address [address] [place] [address] Care Team Providers Care Heating Operators Engineer Name Role Phone Shad (RETIRED) Jerzy LASSITER Primary Care Provid er Unavailable Jerzy Parker Unavailable [phone] REASON FOR VISIT colon recall Encounters Encounter Location Date Provider Diagnosis [facility] [address] [place] [address] 07/02/2023 Jerzy Parker Plan Of Treatment No Information Progress Notes * BRONSON ANDERSON ADOB: [birth year] (72 yo F)Acc No.[id number]:07/02/2023 Patient:?BRONSON ANDERSON :1950???Age:72 Y???Sex:Female [address] [facility] [place] [address] * true * Date:? Generated for Shayan slaughter/Lionel/eTransmitting on:?11/02/2024 03:23 PM EDT
--- OUTSIDE RECORDS SUMMARY | 2024-11-02 15:24 | XMS_ITS ---
Author Organization [facility] Address [address] [place] [address] Care Team Providers Care Tankman Name Role Phone Shad (RETIRED) Jerzy LASSITER Primary Care Provid er Unavailable Jerzy Parker Unavailable [phone] Allergies No Known Allergies REASON FOR VISIT Patient presents today for a colon recall Medications Medication SIG (Take, Route, Frequency, Duration) Notes Start Date End Date Status Multi Vitamin/Minerals - 1 Orally QD Active Calcium 500 + D 500-125 MG-UNIT 1 tablet with food Orally Once a day Active Propranolol HCl 40 MG Oral for 90 Active Ogrzahef-Wwzzefcsb-Elrxtyi h 0.1 % 1 application Ophthalmic as directed Active Omeprazole 20 MG 1 capsule Orally twi ce a day Active Social History Tobacco Use: Social History Observation Description Date Details (start date - stop date) Never Smoker NA - NA Tobacco Use/Smoking Question Answer Notes Patient is a nonsmoker Alcohol Screen Question Answer Notes Did you have a drink containing alcohol in the p ast year? No Points 0 Interpretation Negative Section Notes: Nonsmoker; no sig alcohol Vital Signs Temperature 96.9 degrees Fahrenheit 07/02/20 23 Blood pressure systolic 000 mm Hg 07/02/20 23 Blood pressure diastolic 00 mm Hg 023 Height 64 in 07/02/2023 Weight 149 lb 8 oz lbs 07/02/2023 BMI 25.66 kg/m2 07/02/2023 Encounters Encounter Location Date Provider Diagnosis [facility] [address] [place] [address] 07/02/2023 Jerzy Parker Gastroesophageal ref lux disease, esophagitis presence not specified K21.9 and Encounter for screening for malignant neoplasm of colon Z12.11 Assessments Encounter Date Diagnosis (ICD Code) Assessment Notes Treatment Notes Treatment Clinical Notes Section Notes 07/02/2023 Gastroesophageal reflux disease, esophagitis presence not specified (ICD-10 - K21.9) Overall, Bronson appears well. Her reflux seems to be doing well on her daily regimen of omeprazole. She is not having any new nor worrisome symptoms in this regard. Given the results of her previous upper endoscopy and her clinical history I don't think any further evaluation of that is required. I advised her to continue her daily omeprazole for symptomatic relief of reflux. I also advised her to be careful with her diet and avoid any particular foods that exacerbate the reflux. Given her negative colonoscopy in 2017, no family history of colon cancer, normal laboratories, and no worrisome GI complaints, I advised her that she would not be due for another screening colonoscopy until 2027. I did advise her that if she notices any bleeding or has any significant change in bowel habits she should call prior to that. If things remain well she will see me in the interim on a p.r.n. basis. Bronson was comfortable with this plan. Thank you again for allowing me to participate in Bronson's care. I shall continue to keep you advised of her progress as needed. 07/02/2023 Encounter for screening for malignant neoplasm of colon (ICD-10 - Z12.11) Repeat colonoscopy 09/2027 Overall, Bronson appears well. Her reflux seems to be doing well on her daily regimen of omeprazole. She is not having any new nor worrisome symptoms in this regard. Given the results of her previous upper endoscopy and her clinical history I don't think any further evaluation of that is required. I advised her to continue her daily omeprazole for symptomatic relief of reflux. I also advised her to be careful with her diet and avoid any particular foods that exacerbate the reflux. Given her negative colonoscopy in 2017, no family history of colon cancer, normal laboratories, and no worrisome GI complaints, I advised her that she would not be due for another screening colonoscopy until 2027. I did advise her that if she notices any bleeding or has any significant change in bowel habits she should call prior to that. If things remain well she will see me in the interim on a p.r.n. basis. Bronson was comfortable with this plan. Thank you again for allowing me to participate in Bronson's care. I shall continue to keep you advised of her progress as needed. Plan Of Treatment Medication Medication Name Sig Start Date Stop Date Notes Omeprazole 20 MG 1 capsule Orally twice a day Treatment Notes Assessment Notes Encounter for screening for malignant ne oplasm of colon Repeat colonoscopy 09/2027 Next Appt Details Follow Up: prn, Reason: Progress Notes * BRONSON ANDERSON ADOB: [birth year] (72 yo F)Acc No.[id number]:07/02/2023 Progress Notes Patient:?BRONSON ANDERSON Provider:?Jerzy Parker MD :1950???Age:72 Y???Sex:Female D ate:07/02/2023 Address:[address] [place] [address], [place] [address] Pcp:Jerzy Kulkarni, DO Subjective: * Chief Complaints: * ???Patient presents today fo r a colon recall * HPI: ???incontinence:? I saw Bronson in consultation today in regard to further evaluation of her chronic gastroesophageal reflux and discussion of colorectal cancer screening. ?I last saw Bronson in September of 2017, at which time she underwent a negative followup screening colonoscopy. She also had a negative colonoscopy in 2007. She did have an upper endoscopy in September 2017 as well that was negative for Pop's esophagus, esophagitis, nor any other significant abnormalities. Since that time she has been doing well on daily omeprazole. She denies any significant heartburn nor dysphagia. She enjoys a good appetite, without any early satiety, nausea, nor vomiting. Her bowel movements have been regular and without any signs of bleeding. She denies abdominal pain, jaundice, nor unintentional weight loss. She denies any known family history of colon cancer. ?Laboratories in December revealed a normal CBC with a hemoglobin of 15.2, normal chemistries and renal function, and normal LFTs other than a minimally elevated alkaline phosphatase of 138. * ROS:?General/Constitutional:?Change in appetite?denies.?Chills?denies.?Fatigue?denies.?Ophthalmologic:?Comments?all negative.?ENT:?Comments?all negative.?Respiratory:?hemoptysis?denies.?Cough?denies.?Cardiovascular:?Chest pain?denies.?Orthopnea?denies.?Gastrointestinal:?Comments?See HPI for details.?Genitourinary:?Hematuria?denies.?Dysuria?denies.?Musculoskeletal:?Painful joints?denies.?Weakness?denies.?Skin:?Itching?denies.?Rash?denies.?Neurologic:?Headache?denies.?Seizures?denies.?Psychiatric:?Comments?all negative.? * Medical History:? * Surgical History:?No Surgica l History documented. * Hospitalization/Major Diagno stic Procedure:?No Hospitalization History. * Family History:?Father: dece ased, diagnosed with HTN (hypertension), Heart disease.?Mother: , diagnosed with Heart disease.?Maternal aunt: , in her early 70's, diagnosed with Colon cancer.?Siblings: alive, Brother with history of Crohn's disease, diagnosed with Inflammatory bowel disease.? No celiac disease. No family history of colon cancer or liver cancer. * Social History:?Tobacco Use:?Tobacco Use/Smoking?Patient is a?nonsmoker.?Drugs/Alcohol:?Alcohol Screen?Did you have a drink containing alcohol in the past year??No,?Points?0,?Interpretation?Negative.?Miscellaneous:?Caffeine: 1/2 to 1 cup of coffee QD. Marital status: . Occupation: Retired. ???Nonsmoker; no sig alcohol. * Medications:?TakingOmeprazol e 20 MG Capsule Delayed Release 1 capsule Orally twice a judPtiqrsjs-Kfehlfmmq-Zovbfxad 0.1 % Ointment 1 application Ophthalmic as directedMulti Vitamin/Minerals - Tablet 1 Orally QDCalcium 500 + D 500-125 MG- UNIT Tablet 1 tablet with food Orally Once a dayPropranolol HCl 40 MG Tablet Oral Medication List reviewed and reconciled with the patientTaking Omeprazole 20 MG Capsule Delayed Release 1 capsule Orally twice a dayTaking Shugdrax-Dbahebckq-Xwaehzxh 0.1 % Ointment 1 application Ophthalmic as directedTaking Multi Vitamin/Minerals - Tablet 1 Orally QDTaking Calcium 500 + D 500-125 MG- UNIT Tablet 1 tablet with food Orally Once a dayTaking Propranolol HCl 40 MG Tablet Oral Medication List reviewed and reconciled with the patient * Allergies:?N.K.D.A.yes[Aller gies Verified] Objective: * Vitals:?Wt: 149 lb 8 oz, Ht: 64 in, BMI:25.66 Index, BP: 000/00 mm Hg, Temp: 96.9. * Examination: ???General Examination: ?GENERAL APPEARANCE:?pleasant, well nourished, well developed, in no acute distress.?EYES:?sclera non-icteric.?ORAL CAVITY:?mucosa moist.?NECK/THYROID:?no cervical lymphadenopathy, neck supple.?SKIN:?nonjaundiced, no spider angiomata.?HEART:?S1, S2 normal.?LUNGS:?clear to auscultation bilaterally.?ABDOMEN:?normal bowel sounds, no guarding or rigidity, no guarding or rigidity, no masses palpable, soft, nontender, nondistended.?EXTREMITIES:?no edema.?NEUROLOGIC:?alert and oriented.? Assessment: * Assessment: 1.?Gastroesophageal reflux d isease, esophagitis presence not specified - K21.9 (Primary)?2.?Encounter for screening for malignant neoplasm of colon - Z12.11? Overall, Bronson appears well. Her reflux seems to be doing well on her daily regimen of omeprazole. She is not having any new nor worrisome symptoms in this regard. Given the results of her previous upper endoscopy and her clinical history I don't think any further evaluation of that is required. I advised her to continue her daily omeprazole for symptomatic relief of reflux. I also advised her to be careful with her diet and avoid any particular foods that exacerbate the reflux. Given her negative colonoscopy in 2017, no family history of colon cancer, normal laboratories, and no worrisome GI complaints, I advised her that she would not be due for another screening colonoscopy until 2027. I did advise her that if she notices any bleeding or has any significant change in bowel habits she should call prior to that. If things remain well she will see me in the interim on a p.r.n. basis. Bronson was comfortable with this plan. Thank you again for allowing me to participate in Bronson's care. I shall continue to keep you advised of her progress as needed. Plan: * Treatment: 2.?Others? Continue Omeprazole Capsule Delayed Release, 20 MG, 1 capsule, Orally, twice a day.?? * Procedure Codes:?3017F COLOR ECTAL CA SCREEN DOC [id number] TOBACCO NON-[id number] BP SCR NOT PRFRM REC REASON NOS * Preventive Medicine:? ??Counseling:?Care goal follow-up plan:?Above Normal BMI Follow-up?Giving encouragement to exercise,?BMI management provided?Yes.? ??Urinary Incontinence:?Urinary Incontinence?Assessment:?Absent,?Plan of care documented:?No, reason not specified.? * Follow Up:?prn * * Sign off status: Completed true * Provider:?Jerzy Parker MD Date:? 023 Generated for Shayan slaughter/Lionel/Ashleyitting on:?11/02/2024 03:23 PM EDT History and Physical Notes * HPI (History of Present Illness) Category Sub-Category Detail Notes Category Not es incontinence I saw Bronson in consultation today in regard to further evaluation of her chronic gastroesophageal reflux and discussion of colorectal cancer screening. I last saw Bronson in September of 2017, at which time she underwent a negative followup screening colonoscopy. She also had a negative colonoscopy in 2007. She did have an upper endoscopy in September 2017 as well that was negative for Pop's esophagus, esophagitis, nor any other significant abnormalities. Since that time she has been doing well on daily omeprazole. She denies any significant heartburn nor dysphagia. She enjoys a good appetite, without any early satiety, nausea, nor vomiting. Her bowel movements have been regular and without any signs of bleeding. She denies abdominal pain, jaundice, nor unintentional weight loss. She denies any known family history of colon cancer. Laboratories in December revealed a normal CBC with a hemoglobin of 15.2, normal chemistries and renal function, and normal LFTs other than a minimally elevated alkaline phosphatase of 138. Examination Category Sub-Category Detail Notes Category Not es General Examination GENERAL APPEARANCE: pleasant , well nourished, well developed, in no acute distress HEAD: EYES: sclera non-icteric EARS: NOSE: THROAT: NECK/THYROID: no cervical lymphade nopathy, neck supple HEART: S1, S2 normal CHEST: LUNGS: clear to auscultatio n bilaterally ABDOMEN: normal bowel sounds, no guarding or rigidity, no guarding or rigidity, no masses palpable, soft, nontender, nondistended NEUROLOGIC: alert and oriented SKIN: nonjaundiced, no spi liberty angiomata EXTREMITIES: no edema PERIPHERAL PULSES: BACK: BREASTS: MUSCULOSKELETAL: MALE GENITOURINARY: LYMPH NODES: RECTAL EXAM: FEMALE GENITOURINARY: ORAL CAVITY: mucosa moist
== END 2024-11-02 13:48 | disposition home or self-care (01) ==
LOC: HO.HMCSH 13:09
PROVIDERS: PCP Internal Medicine; Visit Provider Physician Assistant Medical
DX: R25.1 Tremor, unspecified (principal); I10 Essential (primary) hypertension; J30.2 Other seasonal allergic rhinitis; L40.9 Psoriasis, unspecified; M47.812 Spondylosis without myelopathy or radiculopathy, cervical region; B07.9 Viral wart, unspecified

== ENCOUNTER → 2024-11-02 13:09 | Outpatient (BNVA) | payer MEDICARE, OTHER, SELFPAY | PROVIDERS: PCP Internal Medicine; Visit Provider Physician Assistant Medical | DX: R25.1 Tremor, unspecified (principal); I10 Essential (primary) hypertension; J30.2 Other seasonal allergic rhinitis; L40.9 Psoriasis, unspecified; M47.812 Spondylosis without myelopathy or radiculopathy, cervical region; B07.9 Viral wart, unspecified | CPT/HCPCS: 96127; 99202 ==

== ENCOUNTER 2024-11-30 08:28 | Outpatient (REF) | payer MEDICARE, OTHER, SELFPAY ==
--- OUTSIDE RECORDS SUMMARY | 2024-11-30 08:49 | XMS_ITS ---
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 Generated for Printi kasandra/Lionel/eTransmitting on:?11/30/2024 08:49 AM EDT
--- OUTSIDE RECORDS SUMMARY | 2024-11-30 08:49 | XMS_ITS | Patient Health Record ---
Author Organization [facility] Address [address] [place] [address] Care Team Providers Care Hotel Dining Room Cashier Name Role Phone Connor Rubio Primary Care Provider [phone] Juliane Hernández Unavailable [phone] Allergies Allergen (clinical drug ingredient) Drug/Non Drug Allergy documented on EMR Reaction Allergy Type Onset Date Status Sensiitive to some medicines (uncoded) Unknown Allergy Active Reason For Referral No Information Social History Tobacco Use: Social History Observation Description Date Details (start date - stop date) Never Smoker NA - NA Tobacco use other than smoking: Question Answer Notes Are you an other tobacco user? No Tobacco Control (Standard) Question Answer Notes Tobacco use: Nonsmoker AUDIT-C (Standard) Question Answer Notes Did you have a drink containing alcohol in the p ast year? No Points 0 Interpretation Negative Encounters Encounter Location Date Provider Diagnosis [address] [address] 11/02/2024 Juliane Hernández [address] [address] 11/22/2024 Juliane Hernández Plan Of Treatment Next Appt Details Provider Name:Juliane mast, 01/18/2025 01:00:00 PM, [address] [place], [address], Insurance Providers Payer Name Payer Address Payer Phone Subscriber Number Group Number Insured Name Patient Relationship to Insured Coverage Start Date Coverage End Date Medicare National [employer]t [employer] [address] [place] [address] [id number] ShaniaFarraha Self - patient is the insured [employer] [address] [place] [address] [phone] [id number] Deb Jauregui Self - patient is the insured Medical (General) History Medical History History ICD Code Arthritis Broken bones Warts tremors in the head
--- OUTSIDE RECORDS SUMMARY | 2024-11-30 08:50 | XMS_ITS ---
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 Generated for Ana Mariai kasandra/Lionel/eTransmitting on:?11/30/2024 08:49 AM EDT
[2024-11-30 08:53] LABS: MANUAL DIFF FLAG NO
[2024-11-30 09:44] LABS: Basophils Percent Auto 0.5 % (0-2); Eosinophils Absolute Auto 0.5 X10*3/uL (0.0-0.4); Hematocrit 42.8 % (37.0-47.0); Hemoglobin 14.2 g/dl (12.0-16.0); Imm Gran Abs Auto 0.01 X10*3/uL (0.00-0.03); Imm Gran Pct Auto 0.2 % (0.0-0.4); Lymphocytes Absolute Auto 0.9 X10*3/uL (1.2-4.9); Lymphocytes Percent Auto 15.9 % (20-40); Mean Corpuscular HGB Conc 33.2 g/dl (31.0-35.0); Mean Corpuscular Hemoglobin 28.9 pg (27.0-33.0); Mean Corpuscular Volume 87.2 fL (80.0-98.0); Mean Platelet Volume 11.4 fL (9.4-12.3); Monocytes Absolute Auto 0.6 X10*3/uL (0.1-1.2); Monocytes Percent Auto 11.2 % (2-11); Neutrophils Absolute Auto 3.5 x10*3/uL (2.0-8.3); Neutrophils Percent Auto 63.2 % (45-73); Platelet Count 240 X10*3/uL (160-400); Red Blood Count 4.91 X10*6/uL (4.20-5.50); Red Cell Distribution Width 13.2 % (11.0-16.0); White Blood Count 5.5 X10*3/uL (4.8-10.8)
[2024-11-30 09:58] LABS: Estimated Average Glucose 108 mg/dL; Hemoglobin A1C 129.0099 umol/L; Hemoglobin A1c % 5.4 % (<6.0); Total Hemoglobin (HGBA1C) 3668.7304 umol/L
[2024-11-30 10:22] LABS: Erythrocyte Sedimentation Rate 7 MM/HR (0-20)
[2024-11-30 10:30] LABS: Alanine Aminotransferase 19 U/L (0-31); Alkaline Phosphatase 130 U/L (39-117); Anion Gap 9 (12-20); Aspartate Amino Transferase 24 U/L (5-31); Bilirubin Direct 0.2 mg/dL (0.0-0.5); Bilirubin Total 0.5 mg/dL (0.0-1.0); Blood Urea Nitrogen 12 mg/dL (9-16); C Reactive Protein 0.12 mg/dL (< or = 0.50); Calcium 9.2 mg/dL (8.4-10.2); Carbon Dioxide 30 mmol/L (22-29); Chloride 108 mmol/L (96-108); Cholesterol 184 mg/dL (<200); Estimated Glomerular Filt Rate > 60; Glucose Fasting 95 mg/dL (60-99); HDL Cholesterol 57 mg/dL (>40); LDL Cholesterol Calculated 106 mg/dL (<100); Potassium 4.4 mmol/L (3.3-5.1); Sodium 143 mmol/L (135-145); Total Protein 6.6 g/dL (6.5-8.0); Triglycerides 107 mg/dL (<150)
[2024-11-30 10:34] LABS: TSH reflex Free T4 3.48 uIU/mL (0.32-4.0); Vitamin D 25-OH Total 48.5 ng/mL (>30)
[2024-11-30 10:39] LABS: Parathyroid Hormone Intact 105.1 pg/mL (8.7-77.1)
[2024-11-30 11:00] LABS: Folate 14.7 ng/mL (> or = 4.0); Vitamin B12 1334 pg/mL (200-900)
[2024-12-02 13:09] LABS: Zinc 71 mcg/dL (60-130)
[2024-12-04 01:08] LABS: Vitamin A 62 mcg/dL (38-98)
[2024-12-08 16:38] LABS: Vitamin B1 26 nmol/L (8-30)
== END 2024-11-30 08:29 | disposition home or self-care (01) ==
LOC: HO.LAB 08:28
PROVIDERS: PCP Internal Medicine; Visit Provider Physician Assistant Medical
DX: Z00.00 Encounter for general adult medical examination without abnormal findings (principal); Z13.0 Encounter for screening for diseases of the blood and blood-forming organs and certain disorders involving the immune mechanism; Z13.1 Encounter for screening for diabetes mellitus; Z13.220 Encounter for screening for lipoid disorders
CPT/HCPCS: 36415; 80053; 80061; 80076; 82248; 82306; 82607; 82746; 83036; 83735; 83970; 84425; 84443; 84590; 84630; 85025; 85652; 86140

== ENCOUNTER 2024-12-10 09:30 | Outpatient (REF) | payer MEDICARE, OTHER, SELFPAY ==
--- NOTE | ~2024-12-10 | MM_ITS ---
EXAMINATION: DXA BONE DENSITY AXIAL HISTORY: M81.0 - Age-related osteoporosis without current pathological fracture TECHNIQUE: nexTune Dual energy absorptiometry (DEXA) of the lumbar spine, total left hip, and femoral neck was performed. COMPARISON: Comparison is made with the prior examination dated 02/11/2020. FINDINGS: The bone mineral density of the lumbar spine is 1.192 with a T-score of 0.1, and a Z-score of 1.6. This is indicative of normal bone mineral density. This represents a BMD change of -8.2% compared to the prior exam. This is statistically significant. The bone mineral density of the left total hip is 0.655 with a T-score of -2.8, and a Z-score of -1.3. This is indicative of osteoporosis. This represents a BMD change of -7.1% compared to the prior exam. This is statistically significant. The bone mineral density of the left femoral neck is 0.606 with a T-score of -3.1, and a Z-score of -1.4. This is indicative of osteoporosis. This represents a BMD change of -8.0% compared to the prior exam. MM/XR DEXA axial skeleton IMPRESSION: Based on bone mineral density, and according to World Health Organization (WHO) criteria, the diagnosis is consistent with osteoporosis. All bone density values are in grams per centimeter squared (g/cm2). Statistically, 68% of repeat scans fall within 1 SD (+/- 0.010 g/cm2 for AP spine L1-L4) and 1 SD (+/- 0.012 g/cm2 for femur total) FRAX is a trademark of the [employer]'s [place] for Metabolic Bone Disease, a World Health Organization (WHO) Collaborating Center. Electronically signed by: Jerzy Taylor MD 12/10/2024 10:31 AM EDT
== END 2024-12-10 09:31 | disposition home or self-care (01) ==
LOC: HO.MAMMO 09:30
PROVIDERS: PCP Physician Assistant Medical; Visit Provider Physician Assistant Medical
DX: M81.0 Age-related osteoporosis without current pathological fracture (principal)
CPT/HCPCS: 77080

== ENCOUNTER → 2024-12-10 10:00 | Outpatient (BNV) | payer MEDICARE, OTHER, SELFPAY | PROVIDERS: PCP Physician Assistant Medical; Visit Provider Radiology Diagnostic Radiology | DX: E28.39 Other primary ovarian failure (principal) | CPT/HCPCS: 77080 ==

== ENCOUNTER 2025-03-30 10:00 | Outpatient (AMB) | payer MEDICARE, OTHER, SELFPAY ==
[2025-03-30 10:55] VITALS: BP 122/66; PULSE 74; TEMP 36.7; O2SAT 95
--- NOTE | 2025-03-30 10:55 | AM.OFFWIN_ITS ---
Intake Vital Signs 03/30/25 10:55 Height 5 ft 3 in Weight 47 lb BMI 8.3 BP 122/66 Blood Pressure Location Rt brachial Position Sitting Pulse 74 Pulse Source Pulse Oximeter Temp 98.0 F Temp Source Oral Pulse Oximetry (%) 95 Oxygen Delivery Method Room Air Intake Visit Reasons: EP-uti Patient Tobacco Use Status: Never used Tobacco Allergies No Known Allergies Allergy (Verified 03/30/25 10:55) Do you need a note to return to daycare/school/sports/work: No HPI HPI Comments History of Present Illness Details History - The patient is a 74-year-old female pr esenting with pain with urination and pressure in the bladder. - Symptoms began with urinary pressure o n Friday, managed with cranberry juice, followed by chills and headache. - Her son had a viral infection the prev ious week, and she experienced severe chills and dry heaves. - Urinalysis confirmed a urinary tract i nfection with bacteria and blood prese nt. - The patient denies back pain, bleeding , vaginal symptoms, fever, and has no history of kidney stones. - She is sensitive to antibiotics strong er than Tylenol, with a history of vomiting with certain antibiotics, but tolerates amoxicillin. - She states her has similar sym ptoms and had her son with cold symptoms in her home. - She denies blood in her urine or vagin al discharge. Physical Exam General: Cooperative, healthy appearing, comfortable, no acute distress and well developed Cardiac: Normal S1 and S2. RRR, no M/R/G noted. Respiratory: Normal respiratory effort and able to speak in complete sentences. Clear to auscultation bilaterally. No w/r/r noted. Skin: No rashes or lesions noted. GI: Normal inspection. Normal BS noted. Soft, non-tender, non-distended. No TTP of all 4 quadrants. No guarding or rebound tenderness noted. Back: Negative CVA bilaterally Patient was informed and verbally consented to the use of an ambient scribe for clinic note documentation during this visit [facility] Medical History (Updated 11/30/24 @ 14:04 by Josefina Quiñones PA-C) Elevated parathyroid hormone Viral wart on toe Internal hemorrhoids Sigmoid diverticulosis History of mammogram (~09/02/24) Osteoporosis Achilles tendonitis Osteoarthritis of neck Traumatic pneumothorax Psoriasis Menopause Hay fever Seasonal allergies Hypertension Acid reflux Tremor Surgical History (Updated 03/23/25 @ 07:43 by Brittney Maddox) History of colonoscopy (~09/12/17) H/O removal of cyst History of tonsillectomy Family History Father Cancer Mother Cancer Social History Housing: House Alcohol intake: current Alcohol intake frequency: does not drink Patient Tobacco Use Status: Never used Tobacco service: No Current occupational status: disabled 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 Cognitive needs: No Hearing needs: No Vision needs: Yes (rx glasses) Review of Systems Const All systems reviewed & are unremarkable except as noted in HPI and below Physical Exam Vital Signs: Last Vital Signs Temp 98.0 F 03/30/25 10:55 Pulse 74 03/30/25 10:55 BP 122/66 03/30/25 10:55 Pulse Ox 95 03/30/25 10:55 Oxygen Delivery Method Room Air 03/30/25 10:55 BMI result Body Mass Index 8.3 Results AMB Urinalysis, Automated UA Leukoctes 500 Eric/uL Last Edit by Latonya Byrne CMA on 03/30/25 10:56 UA Nitrite Negative Last Edit by Latonya Byrne CMA on 03/30/25 10:56 UA Urobilinogen 0.2 mg/dL Last Edit by Latonya Byrne CMA on 03/30/25 10:56 UA Protein 30 mg/dL Last Edit by Latonya Byrne CMA on 03/30/25 10:56 UA pH 6.0 Last Edit by Latonya Byrne CMA on 03/30/25 10:56 UA Blood 80 David/uL Last Edit by Latonya Byrne CMA on 03/30/25 10:56 UA Specific [place] 1.015 Last Edit by Latonya Byrne CMA on 03/30/25 10:56 UA Ketone Negative Last Edit by Latonya Byrne CMA on 03/30/25 10:56 UA Bilirubin 0 mg/dL Last Edit by Latonya Byrne CMA on 03/30/25 10:56 UA Glucose 0 mg/dL Last Edit by Latonya Byrne CMA on 03/30/25 10:56 Results Reviewed Results Reviewed: Laboratory Last Values Urine pH (Auto) 6.0 03/30/25 10:51 Specific [place] (Auto) 1.015 03/30/25 10:51 Urine Protein (Auto) 30 mg/dL 03/30/25 10:51 Glucose (UA)(Auto) 0 mg/dL 03/30/25 10:51 Urine Ketones (Auto) Negative 03/30/25 10:51 Urine Blood (Auto) 80 David/uL 03/30/25 10:51 Urine Nitrite (Auto) Negative 03/30/25 10:51 Urine Bilirubin (Auto) 0 mg/dL 03/30/25 10:51 Urine Urobilinogen (Auto) 0.2 mg/dL 03/30/25 10:51 Leukocyte Esterase (Auto) 500 Eric/uL 03/30/25 10:51 Assessment & Plan Assessment & Plan (1) Dysuria: Code(s): R30.0 - Dysuria Plan Most likely UTI vs viral illness UA in the office has 3+leuko, 2+blood, 1+pro Plan - Initiate antibiotic therapy with a cephalosporin, considering patient's sensitivity to stronger antibiotics. - Prescribe Zofran to manage nausea, to be taken 30 minutes before the antibiotic. - Send urine for culture to guide further antibiotic therapy. - Symptomatic management with hydration and monitoring of symptoms. - follow up with PCP Orders: Orders Urine Culture Today N39.0 - Urinary tract infection, site not specified AMB Urinalysis Automated Today Z13.9 - Encounter for screening, unspecified Medications: New cefuroxime axetil 500 mg PO Q12H 10 tabs 0RF ondansetron 4 mg PO Q8H PRN 10 tabs 0RF nausea and vomiting Coding Level of Care Code Est Pt Level 3 (68963) Diagnoses Dysuria R30.0
== END 2025-03-30 11:44 | disposition home or self-care (01) ==
PROVIDERS: PCP Physician Assistant Medical; Visit Provider Physician Assistant Medical
DX: Z13.9 Encounter for screening, unspecified (principal); R30.0 Dysuria

== ENCOUNTER → 2025-03-30 10:00 | Outpatient (BNVA) | payer MEDICARE, OTHER, SELFPAY | PROVIDERS: PCP Physician Assistant Medical; Visit Provider Physician Assistant Medical | DX: R30.0 Dysuria (principal) | CPT/HCPCS: 81003; 99212 ==

== ENCOUNTER 2025-06-11 15:46 | Inpatient (IN) | payer MEDICARE, OTHER, SELFPAY ==
--- NOTE | ~2025-06-11 | CT_ITS ---
CLINICAL HISTORY: nausea vomiting, + UTI Exam: Contrast-enhanced CT abdomen and pelvis with multiplanar reformats. Comparison: None. Findings: CT abdomen: Lung bases are clear. Liver is free of focal lesions and ductal dilatation. Gallbladder appears unremarkable. Spleen appears unremarkable. Pancreas and adrenal glands appear unremarkable. Left kidney is unremarkable. Right kidney reveals heterogeneous nephrogram, compatible with mild pyelonephritis. Additionally, there is uroepithelial wall thickening involving the ureter and renal pelvis, compatible with ureteritis/pyelitis. No definable urolithiasis. No free intraperitoneal fluid or retroperitoneal masses or adenopathy. Abdominal aorta is normal caliber. Bowel loops reveal no abnormal wall thickening or distention. CT pelvis: Uterus and adnexal structures appear unremarkable. Urinary bladder is free of gross filling defects. No pelvic masses, fluid or adenopathy. Osseous structures reveal no destructive osseous lesions. Impression: 1. Evidence of ascending urinary tract infection on the right with right-sided pyelonephritis. This document has been electronically signed by: Brett Castellanos MD on 06/11/2025 19:18:14
--- NOTE | ~2025-06-11 | XR_ITS ---
CLINICAL HISTORY: weakness, cough 2 view chest x-ray. Comparison: None Findings: No consolidation or effusion. Cardiac and mediastinal contours are unremarkable. Bones unremarkable. Impression: 1. No acute pulmonary disease. This document has been electronically signed by: Brett Castellanos MD on 06/11/2025 16:55:21
--- NOTE | 2025-06-11 15:51 | ECG_ITS ---
Test Reason : FEVER Blood Pressure : */* mmHG Vent. Rate : 80 BPM Atrial Rate : 80 BPM P-R Int : 124 ms QRS Dur : 72 ms QT Int : 368 ms P-R-T Axes : 35 37 13 degrees QTcB Int : 424 ms Sinus rhythm with Premature atrial complexes Nonspecific ST abnormality Abnormal ECG When compared with ECG of 05-Jan-2010 07:41, Premature atrial complexes are now Present Nonspecific T wave abnormality no longer evident in Anterior leads Referred By: Etienne Julio Electronically Signed By: Chuckie Mak
--- NOTE | 2025-06-11 15:52 | ED.GENADULT ---
HPI - General Adult General Chief complaint: Nausea/Vomiting/Diarrhea Stated complaint: fever/temp of 103 chills and headache Time Seen by Provider: 06/11/25 17:25 Related Data Home Medications ?Medication ?Instructions ?Recorded ?Confirmed multivitamin 1 tab PO DAILY 11/02/24 11/02/24 multivitamin 1 tab PO DAILY 03/30/25 Previous Rx's ?Medication ?Instructions ?Recorded salicylic acid 3 % topical ointment 1 appl topical BID PRN skin 11/02/24 irritation #30 grams salicylic acid 40 % topical patch 1 appl topical Q48H #14 ea 11/03/24 (Wart Remover) propranolol 40 mg tablet 40 mg PO BID #180 tabs 03/03/25 cefuroxime axetil 500 mg tablet 500 mg PO Q12H #10 tabs 03/30/25 ondansetron 4 mg disintegrating 4 mg PO Q8H PRN nausea and 03/30/25 tablet vomiting #10 tabs mineral oil (Fleet Mineral Oil [address] DAILY PRN constipation 04/07/25 enema) #6,384 mL peg 3350-electrolytes 236 240 ml PO Q10M #4,000 mL 04/07/25 gram-22.74 gram-6.74 gram-5.86 gram solution (Golytely) omeprazole 20 mg capsule,delayed 20 mg PO DAILY #90 caps 05/26/25 release cefuroxime axetil 500 mg tablet 500 mg PO BID 10 days #20 tabs 06/11/25 ibuprofen 400 mg tablet 400 mg PO Q6H PRN pain #20 tabs 06/11/25 ondansetron 4 mg disintegrating 4 mg PO TID PRN nausea and 06/11/25 tablet vomiting 5 days #10 tabs Allergies Allergy/AdvReac Type Severity Reaction Status Date / Time No Known Allergies Allergy Verified 06/11/25 15:57 [facility] Past Medical History Medical History (Updated 06/11/25 @ 19:51 by Nava Mendieta MD) Elevated parathyroid hormone Viral wart on toe Internal hemorrhoids Sigmoid diverticulosis History of mammogram (~09/02/24) Osteoporosis Achilles tendonitis Osteoarthritis of neck Traumatic pneumothorax Psoriasis Menopause Hay fever Seasonal allergies Hypertension Acid reflux Tremor Surgical History (Updated 03/23/25 @ 07:43 by rBittney Maddox) History of colonoscopy (~09/12/17) H/O removal of cyst History of tonsillectomy Family History Family History Father Cancer Mother Cancer Social History Social History Housing: House Alcohol intake: current Alcohol intake frequency: does not drink Patient Tobacco Use Status: Never used Tobacco Smoked in Last 30 Days: No Use of substances other than those prescribed or required for medical reasons: No Advance Directives: No Advance Directives Information Provided: No service: No Current occupational status: disabled 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 Please refer to detailed history, exam, evaluation, and management by primary provider. Weakness, cough, nausea, weakness. Labs ordered. JS Medications Administered Discontinued Medications Generic Name Dose Route Start Last Admin Trade Name Freq PRN Reason Stop Dose Admin Sodium Chloride 1,000 mls @ 999 mls/hr 06/11/25 18:00 06/11/25 18:18 Ns IV 06/11/25 19:00 999 mls/hr .Q1H1M MICHELINE Administration Sodium Chloride 1,000 mls @ 999 mls/hr 06/11/25 18:00 06/11/25 18:19 Ns IV 06/11/25 19:00 999 mls/hr .Q1H1M MICHELINE Administration Ceftriaxone Sodium 1 gm/ 50 mls @ 100 mls/hr 06/11/25 17:58 06/11/25 18:44 Sodium Chloride IV 06/11/25 18:27 Infused ONCE ONE Infusion Iohexol 100 ml 06/11/25 18:48 06/11/25 18:48 Iohexol 350 Mg/Ml 100 Ml Infus..Btl IV 06/11/25 18:49 85 ml ONCE ONE Administration Ondansetron HCl 4 mg 06/11/25 17:54 06/11/25 18:17 Ondansetron Hcl 4 Mg/2 Ml Vial IVPUSH 06/11/25 17:55 4 mg ONCE ONE Administration Medical Decision Making Lab Data 06/11/25 16:11 06/11/25 16:11 Labs: Lab Results 06/11/25 06/11/25 06/11/25 Range/Units 16:10 16:11 16:13 WBC 7.9 (4.8-10.8) X10*3/uL RBC 5.11 (4.20-5.50) X10*6/uL Hgb 14.6 (12.0-16.0) g/dl Hct 44.2 (37.0-47.0) % MCV 86.5 (80.0-98.0) fL MCH 28.6 (27.0-33.0) pg MCHC 33.0 (31.0-35.0) g/dl RDW 13.4 (11.0-16.0) % Plt Count 207 (160-400) X10*3/uL MPV 11.4 (9.4-12.3) fL Immature Gran % (Auto) 0.5 H (0.0-0.4) % Neut % (Auto) 88.7 H (45-73) % Lymph % (Auto) 3.9 L (20-40) % [place] % (Auto) 6.1 (2-11) % Eos % (Auto) 0.4 (0-4) % Baso % (Auto) 0.4 (0-2) % Lymph # (Auto) 0.3 L (1.2-4.9) X10*3/uL [place] # (Auto) 0.5 (0.1-1.2) X10*3/uL Eos # (Auto) 0.0 (0.0-0.4) X10*3/uL Baso # (Auto) 0.0 (0.0-0.2) X10*3/uL Abs Immat Gran (auto) 0.04 H (0.00-0.03) X10*3/uL Absolute Neuts (auto) 7.0 (2.0-8.3) x10*3/uL Absolute Nucleated RBC 0.000 (0.0-0.012) X10*3/uL Nucleated RBC % (auto) 0.0 (0.0-0.2) /100WBC Sodium 138 (135-145) mmol/L Potassium 4.2 (3.3-5.1) mmol/L Chloride 105 (96-108) mmol/L Carbon Dioxide 21 L (22-29) mmol/L Anion Gap 16 (12-20) BUN 14 (9-16) mg/dL Creatinine 0.71 (0.5-1.4) mg/dL Estim Creat Clear Calc 64.0 Estimated GFR > 60 Random Glucose 132 H (60-115) mg/dL Lactic Acid 1.9 (0.5-2.0) mmol/L Calcium 9.3 (8.4-10.2) mg/dL Total Bilirubin 1.0 (0.0-1.0) mg/dL AST 27 (5-31) U/L ALT 11 (0-31) U/L Alkaline Phosphatase 112 (39-117) U/L Total Protein 6.8 (6.5-8.0) g/dL Albumin 4.2 (3.5-5.0) g/dL Urine Color Urine Appearance Urine pH (5.0-9.0) Ur Specific [place] (1.005-1.025) Urine Protein (Neg-Trace) mg/dL Urine Glucose (UA) (Negative) mg/dL Urine Ketones (Negative) mg/dL Urine Blood (Negative) Urine Nitrite (Negative) Ur Leukocyte Esterase (Negative) Urine RBC (0-2) /HPF Urine WBC (0-5) /HPF Ur Squamous Epith Cells (0-2) /HPF Urine Bacteria (None Seen) Hyaline Casts (0-2) /LPF COVID-19 (LIZANDRO) Negative (Negative) COVID-19 Clin Com See Note Influenza Type A (KAITLIN) Negative (Negative) Influenza Type B (KAITLIN) Negative (Negative) Influenza A & B Note See Note 06/11/25 06/11/25 Range/Units 17:10 18:11 WBC (4.8-10.8) X10*3/uL RBC (4.20-5.50) X10*6/uL Hgb (12.0-16.0) g/dl Hct (37.0-47.0) % MCV (80.0-98.0) fL MCH (27.0-33.0) pg MCHC (31.0-35.0) g/dl RDW (11.0-16.0) % Plt Count (160-400) X10*3/uL MPV (9.4-12.3) fL Immature Gran % (Auto) (0.0-0.4) % Neut % (Auto) (45-73) % Lymph % (Auto) (20-40) % [place] % (Auto) (2-11) % Eos % (Auto) (0-4) % Baso % (Auto) (0-2) % Lymph # (Auto) (1.2-4.9) X10*3/uL [place] # (Auto) (0.1-1.2) X10*3/uL Eos # (Auto) (0.0-0.4) X10*3/uL Baso # (Auto) (0.0-0.2) X10*3/uL Abs Immat Gran (auto) (0.00-0.03) X10*3/uL Absolute Neuts (auto) (2.0-8.3) x10*3/uL Absolute Nucleated RBC (0.0-0.012) X10*3/uL Nucleated RBC % (auto) (0.0-0.2) /100WBC Sodium (135-145) mmol/L Potassium (3.3-5.1) mmol/L Chloride (96-108) mmol/L Carbon Dioxide (22-29) mmol/L Anion Gap (12-20) BUN (9-16) mg/dL Creatinine (0.5-1.4) mg/dL Estim Creat Clear Calc Estimated GFR Random Glucose (60-115) mg/dL Lactic Acid 1.1 (0.5-2.0) mmol/L Calcium (8.4-10.2) mg/dL Total Bilirubin (0.0-1.0) mg/dL AST (5-31) U/L ALT (0-31) U/L Alkaline Phosphatase (39-117) U/L Total Protein (6.5-8.0) g/dL Albumin (3.5-5.0) g/dL Urine Color Yellow Urine Appearance Clear Urine pH 5.5 (5.0-9.0) Ur Specific [place] <= 1.005 (1.005-1.025) Urine Protein Negative (Neg-Trace) mg/dL Urine Glucose (UA) Negative (Negative) mg/dL Urine Ketones Negative (Negative) mg/dL Urine Blood Small (1+) H (Negative) Urine Nitrite Positive H (Negative) Ur Leukocyte Esterase Moderate (2+) H (Negative) Urine RBC 0-2 (0-2) /HPF Urine WBC >50 H (0-5) /HPF Ur Squamous Epith Cells 0-2 (0-2) /HPF Urine Bacteria 2+ (None Seen) Hyaline Casts 0-2 (0-2) /LPF COVID-19 (LIZANDRO) (Negative) COVID-19 Clin Com Influenza Type A (KAITLIN) (Negative) Influenza Type B (KAITLIN) (Negative) Influenza A & B Note Discharge Plan Discharge Clinical Impression: Pyelonephritis Patient Disposition: Home, Self-Care Instructions: Kidney Infection (ED) Prescriptions: New cefuroxime axetil 500 mg tablet 500 mg PO BID 10 Days Qty: 20 0RF ibuprofen 400 mg tablet 400 mg PO Q6H PRN (Reason: pain) Qty: 20 0RF ondansetron 4 mg tablet,disintegrating 4 mg PO TID PRN (Reason: nausea and vomiting) 5 Days Qty: 10 0RF No Action Wart Remover 40 % adhesive patch,medicated 1 appl topical Q48H Qty: 14 1RF propranolol 40 mg tablet 40 mg PO BID Qty: 180 1RF mineral oil [Fleet Mineral Oil] Enema [address] DAILY PRN (Reason: constipation) Qty: 6384 1RF Rx Instructions: discard any unused portion peg 3350-electrolytes [Golytely] 236-22.74-6.74 -5.86 gram recon soln 240 ml PO Q10M Qty: 4000 0RF Rx Instructions: until fecal effluent is clear omeprazole 20 mg capsule,delayed release(DR/EC) 20 mg PO DAILY Qty: 90 3RF multivitamin Tablet 1 tab PO DAILY salicylic acid 3 % ointment 1 appl topical BID PRN (Reason: skin irritation) Qty: 30 3RF multivitamin Tablet 1 tab PO DAILY cefuroxime axetil 500 mg tablet 500 mg PO Q12H Qty: 10 0RF ondansetron 4 mg tablet,disintegrating 4 mg PO Q8H PRN (Reason: nausea and vomiting) Qty: 10 0RF Referrals: Josefina Quiñones PA-C [Primary Care Provider, Internal Medicine] - 06/14/25 Print Language: [place]
[2025-06-11 15:55] VITALS: BP 131/65; PULSE 92; RESP 18; TEMP 36.8; O2SAT 94; BMI 25.5
[2025-06-11 16:20] LABS: MANUAL DIFF FLAG NO
[2025-06-11 16:33] LABS: Hematocrit 44.2 % (37.0-47.0); Hemoglobin 14.6 g/dl (12.0-16.0); Imm Gran Abs Auto 0.04 X10*3/uL (0.00-0.03); Imm Gran Pct Auto 0.5 % (0.0-0.4); Lymphocytes Absolute Auto 0.3 X10*3/uL (1.2-4.9); Mean Corpuscular HGB Conc 33.0 g/dl (31.0-35.0); Mean Corpuscular Hemoglobin 28.6 pg (27.0-33.0); Mean Corpuscular Volume 86.5 fL (80.0-98.0); NRBC Abs Auto 0.000 X10*3/uL (0.0-0.012); NRBC Pct Auto 0.0 /100WBC (0.0-0.2); Platelet Count 207 X10*3/uL (160-400); Red Blood Count 5.11 X10*6/uL (4.20-5.50); White Blood Count 7.9 X10*3/uL (4.8-10.8)
[2025-06-11 16:37] LABS: Alanine Aminotransferase 11 U/L (0-31); Albumin Level 4.2 g/dL (3.5-5.0); Alkaline Phosphatase 112 U/L (39-117); Anion Gap 16 (12-20); Aspartate Amino Transferase 27 U/L (5-31); Blood Urea Nitrogen 14 mg/dL (9-16); Calcium 9.3 mg/dL (8.4-10.2); Carbon Dioxide 21 mmol/L (22-29); Chloride 105 mmol/L (96-108); Creatinine Clr Calc Pharmacy 64.0; Estimated Glomerular Filt Rate > 60; Potassium 4.2 mmol/L (3.3-5.1); Sodium 138 mmol/L (135-145); Total Protein 6.8 g/dL (6.5-8.0)
[2025-06-11 16:54] LABS: COVID-19 Test Negative (Negative); IDNOW Serial# 55D5AD1C
[2025-06-11 16:55] LABS: IDNOW Serial# 58CA691E
[2025-06-11 16:56] LABS: Influenza B2 Negative (Negative)
[2025-06-11 16:58] VITALS: BP 101/72; PULSE 81; RESP 22; TEMP 37.1; O2SAT 97
--- NOTE | 2025-06-11 17:25 | PC.NURSE ---
Patient presents to ED c/o nausea without vomiting Patient has been feeling general unwellness over the last week. Patient experiencing chills, temp 98.8 BP soft 101/72, all other VSS and up to date CXR = negative COVID/ FLU = negative Provider in to see patient Plan of care on going
[2025-06-11 17:27] LABS: Appearance Urine Clear; Glucose Urine UA Negative (Negative); PH 5.5 (5.0-9.0); Specific Gravity - Urine <= 1.005 (1.005-1.025); UMIC TRIGGER UA YES
--- NOTE | 2025-06-11 17:56 | ED_ITS ---
HPI - Nausea/Vomiting/Diarrhea General Chief complaint: Nausea/Vomiting/Diarrhea Stated complaint: fever/temp of 103 chills and headache Time Seen by Provider: 06/11/25 17:25 History of Present Illness HPI Narrative: Patient is a 74-year-old female presented today with having fever up to 103. Patient has frequent urination. Dysuria. Decreased appetite. Nausea for the last 3 days. Feels very tired. No diarrhea. He is having bowel movements. No coughing or congestion. Related Data Home Medications ?Medication ?Instructions ?Recorded ?Confirmed multivitamin 1 tab PO DAILY 11/02/24 04/0 08/28 multivitamin 1 tab PO DAILY 03/30/25 Previous Rx's ?Medication ?Instructions ?Recorded salicylic acid 3 % topical ointment 1 appl topical BID PRN skin 11/02/24 irritation #30 grams salicylic acid 40 % topical patch 1 appl topical Q48H #14 ea 11/03/24 (Wart Remover) propranolol 40 mg tablet 40 mg PO BID #180 tabs 03/03 cefuroxime axetil 500 mg tablet 500 mg PO Q12H #10 tab s 03/30/25 ondansetron 4 mg disintegrating 4 mg PO Q8H PRN nausea and 03/30/25 tablet vomiting #10 tabs mineral oil (Fleet Mineral Oil 118 ml [place] DAILY PRN con stipation 04/07/25 enema) #6,384 mL peg 3350-electrolytes 236 240 ml PO Q10M #4,000 mL 11/26 gram-22.74 gram-6.74 gram-5.86 gram solution (Golytely) omeprazole 20 mg capsule,delayed 20 mg PO DAILY #90 ca ps 05/26/25 release cefuroxime axetil 500 mg tablet 500 mg PO BID 10 days #20 tabs 06/11/25 ibuprofen 400 mg tablet 400 mg PO Q6H PRN pain #20 t abs 06/11/25 ondansetron 4 mg disintegrating 4 mg PO TID PRN nausea and 06/11/25 tablet vomiting 5 days #10 tabs Allergies Allergy/AdvReac Type Severity Reaction Status Date / Time No Known Allergies Allergy Verified 06/11/25 15:57 Review of Systems 2 Review of Systems: Positive dysuria Yes all other systems are reviewed and are negative [facility] Past Medical History Attestation statement: The following information was validated with the patient. Medical History (Updated 06/11/25 @ 19:51 by Nava Mendieta MD) Elevated parathyroid hormone Viral wart on toe Internal hemorrhoids Sigmoid diverticulosis History of mammogram (~09/02/24) Osteoporosis Achilles tendonitis Osteoarthritis of neck Traumatic pneumothorax Psoriasis Menopause Hay fever Seasonal allergies Hypertension Acid reflux Tremor Surgical History (Updated 03/23/25 @ 07:43 by Brittney Maddox) History of colonoscopy (~09/12/17) H/O removal of cyst History of tonsillectomy Family History Family History Father Cancer Mother Cancer Social History Social History Housing: House Alcohol intake: current Alcohol intake frequency: does not drink Patient Tobacco Use Status: Never used Tobacco Smoked in Last 30 Days: No Use of substances other than those prescribed or required for medical reasons: No Advance Directives: No Advance Directives Information Provided: No service: No Current occupational status: disabled 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 Oriented X3. No acute distress. Eyes: Pupils equal, round and reactive to light. ENT: Pharynx normal. Neck: Normal inspection. Neck supple. No lymph nodes noted. No crepitus CVS: Normal heart rate and rhythm. Pulses normal. Normal S1 and S2 Respiratory: No respiratory distress. Breath sounds normal. No Wheezing. No rales Abdomen: Soft and nontender. No rigidity. No distention. good BS x4 Skin: Skin warm and dry. Normal skin color. Normal skin turgor. Extremities: No lower extremity edema. Neurovascular intact to all extremities. No Lacerations. No Rash Neuro: Oriented X 3. No motor deficit. No sensory deficit. Moving all extermities. No slurred speech Vital Signs: Vital Signs: Last Vital Signs Temp 98.7 F 06/11/25 16:58 Pulse 81 06/11/25 16:58 Resp 22 H 06/11/25 16:58 BP 101/72 06/11/25 16:58 Pulse Ox 97 06/11/25 16:58 O2 Del Method Room Air 06/11/25 16:58 BMI result Body Mass Index 25.5 Medications Administered Discontinued Medications Generic Name Dose Route Start Last Admin Trade Name Ramezq PRN Reason Stop Dose Admin Sodium Chloride 1,000 mls @ 999 mls/hr 06/11/25 18:00 06/11/25 18:18 Ns IV 06/11/25 19:00 999 mls/hr .Q1H1M MICHELINE Administration Sodium Chloride 1,000 mls @ 999 mls/hr 06/11/25 18:00 06/11/25 18:19 Ns IV 06/11/25 19:00 999 mls/hr .Q1H1M MICHELINE Administration Ceftriaxone Sodium 1 gm/ 50 mls @ 100 mls/hr 06/11/25 17:58 06/11/25 18:44 Sodium Chloride IV 06/11/25 18:27 Infused ONCE ONE Infusion Iohexol 100 ml 06/11/25 18:48 06/11/25 18:48 Iohexol 350 Mg/Ml 100 Ml Infus..Btl IV 06/11/25 18:49 85 ml ONCE ONE Administration Ondansetron HCl 4 mg 06/11/25 17:54 06/11/25 18:17 Ondansetron Hcl 4 Mg/2 Ml Vial IVPUSH 06/11/25 17:55 4 mg ONCE ONE Administration Medical Decision Making Medical Decision Making MDM Narrative: Positive urinary symptoms nausea had high fever on . Urine was grossly infected. CT scan showed no evidence of bowel obstruction no evidence diverticulitis did show pyelonephritis consistent with the infected urine. Patient's lactate is 1.1 there is no evidence of severe sepsis. A dose of Rocephin was given. Will start patient on cefuroxime. Zofran for nausea. Currently in stable condition. Differential Diagnosis Differential Diagnoses: The differential diagnosis associated with the presentation includes UTI/pyelonephritis, obstruction, sepsis Admission/Observation Consideration of admission/observation: Escalation of care including admission/observation considered Considered admission Lab Data MDM Lab Attestation statement: I reviewed the patient's lab results. 06/11/25 16:11 06/11/25 16:11 Labs: Lab Results 06/11/25 06/11/25 06/11/25 Range/Units 16:10 16:11 16:13 WBC 7.9 (4.8-10.8) X10*3/uL RBC 5.11 (4.20-5.50) X10*6/uL Hgb 14.6 (12.0-16.0) g/dl Hct 44.2 (37.0-47.0) % MCV 86.5 (80.0-98.0) fL MCH 28.6 (27.0-33.0) pg MCHC 33.0 (31.0-35.0) g/dl RDW 13.4 (11.0-16.0) % Plt Count 207 (160-400) X10*3/uL MPV 11.4 (9.4-12.3) fL Immature Gran % (Auto) 0.5 H (0.0-0.4) % Neut % (Auto) 88.7 H (45-73) % Lymph % (Auto) 3.9 L (20-40) % [place] % (Auto) 6.1 (2-11) % Eos % (Auto) 0.4 (0-4) % Baso % (Auto) 0.4 (0-2) % Lymph # (Auto) 0.3 L (1.2-4.9) X10*3/uL [place] # (Auto) 0.5 (0.1-1.2) X10*3/uL Eos # (Auto) 0.0 (0.0-0.4) X10*3/uL Baso # (Auto) 0.0 (0.0-0.2) X10*3/uL Abs Immat Gran (auto) 0.04 H (0.00-0.03) X10*3/uL Absolute Neuts (auto) 7.0 (2.0-8.3) x10*3/uL Absolute Nucleated RBC 0.000 (0.0-0.012) X10*3/uL Nucleated RBC % (auto) 0.0 (0.0-0.2) /100WBC Sodium 138 (135-145) mmol/L Potassium 4.2 (3.3-5.1) mmol/L Chloride 105 (96-108) mmol/L Carbon Dioxide 21 L (22-29) mmol/L Anion Gap 16 (12-20) BUN 14 (9-16) mg/dL Creatinine 0.71 (0.5-1.4) mg/dL Estim Creat Clear Calc 64.0 Estimated GFR > 60 Random Glucose 132 H (60-115) mg/dL Lactic Acid 1.9 (0.5-2.0) mmol/L Calcium 9.3 (8.4-10.2) mg/dL Total Bilirubin 1.0 (0.0-1.0) mg/dL AST 27 (5-31) U/L ALT 11 (0-31) U/L Alkaline Phosphatase 112 (39-117) U/L Total Protein 6.8 (6.5-8.0) g/dL Albumin 4.2 (3.5-5.0) g/dL Urine Color Urine Appearance Urine pH (5.0-9.0) Ur Specific [place] (1.005-1.025) Urine Protein (Neg-Trace) mg/dL Urine Glucose (UA) (Negative) mg/dL Urine Ketones (Negative) mg/dL Urine Blood (Negative) Urine Nitrite (Negative) Ur Leukocyte Esterase (Negative) Urine RBC (0-2) /HPF Urine WBC (0-5) /HPF Ur Squamous Epith Cells (0-2) /HPF Urine Bacteria (None Seen) Hyaline Casts (0-2) /LPF COVID-19 (LIZANDRO) Negative (Negative) COVID-19 Clin Com See Note Influenza Type A (KAITLIN) Negative (Negative) Influenza Type B (KAITLIN) Negative (Negative) Influenza A & B Note See Note 06/11/25 06/11/25 Range/Units 17:10 18:11 WBC (4.8-10.8) X10*3/uL RBC (4.20-5.50) X10*6/uL Hgb (12.0-16.0) g/dl Hct (37.0-47.0) % MCV (80.0-98.0) fL MCH (27.0-33.0) pg MCHC (31.0-35.0) g/dl RDW (11.0-16.0) % Plt Count (160-400) X10*3/uL MPV (9.4-12.3) fL Immature Gran % (Auto) (0.0-0.4) % Neut % (Auto) (45-73) % Lymph % (Auto) (20-40) % [place] % (Auto) (2-11) % Eos % (Auto) (0-4) % Baso % (Auto) (0-2) % Lymph # (Auto) (1.2-4.9) X10*3/uL [place] # (Auto) (0.1-1.2) X10*3/uL Eos # (Auto) (0.0-0.4) X10*3/uL Baso # (Auto) (0.0-0.2) X10*3/uL Abs Immat Gran (auto) (0.00-0.03) X10*3/uL Absolute Neuts (auto) (2.0-8.3) x10*3/uL Absolute Nucleated RBC (0.0-0.012) X10*3/uL Nucleated RBC % (auto) (0.0-0.2) /100WBC Sodium (135-145) mmol/L Potassium (3.3-5.1) mmol/L Chloride (96-108) mmol/L Carbon Dioxide (22-29) mmol/L Anion Gap (12-20) BUN (9-16) mg/dL Creatinine (0.5-1.4) mg/dL Estim Creat Clear Calc Estimated GFR Random Glucose (60-115) mg/dL Lactic Acid 1.1 (0.5-2.0) mmol/L Calcium (8.4-10.2) mg/dL Total Bilirubin (0.0-1.0) mg/dL AST (5-31) U/L ALT (0-31) U/L Alkaline Phosphatase (39-117) U/L Total Protein (6.5-8.0) g/dL Albumin (3.5-5.0) g/dL Urine Color Yellow Urine Appearance Clear Urine pH 5.5 (5.0-9.0) Ur Specific [place] <= 1.005 (1.005-1.025) Urine Protein Negative (Neg-Trace) mg/dL Urine Glucose (UA) Negative (Negative) mg/dL Urine Ketones Negative (Negative) mg/dL Urine Blood Small (1+) H (Negative) Urine Nitrite Positive H (Negative) Ur Leukocyte Esterase Moderate (2+) H (Negative) Urine RBC 0-2 (0-2) /HPF Urine WBC >50 H (0-5) /HPF Ur Squamous Epith Cells 0-2 (0-2) /HPF Urine Bacteria 2+ (None Seen) Hyaline Casts 0-2 (0-2) /LPF COVID-19 (LIZANDRO) (Negative) COVID-19 Clin Com Influenza Type A (KAITLIN) (Negative) Influenza Type B (KAITLIN) (Negative) Influenza A & B Note Independent Interpretation I performed an independent interpretation of an: Plain X-Ray (Chest x-ray negative) and CT Scan (No overt bowel obstruction) Radiology Impression Discussion of test interpretation with radiology: I have reviewed the radiologist's reading. Independent Historian Clinical information obtained from an independent historian. History obtained from or confirmed by: Spouse External Record Review Previous GI record reviewed Prescription Management I considered prescription management with: Antibiotic Chronic Conditions Patient?s care impacted by: Hypertension History of hypertension Social Determinants Patient?s care significantly limited by Social Determinants of Health including: Problems related to primary support group Discharge Plan Discharge Clinical Impression: Pyelonephritis Patient Disposition: Home, Self-Care Instructions: Kidney Infection (ED) Prescriptions: New cefuroxime axetil 500 mg tablet 500 mg PO BID 10 Days Qty: 20 0RF ibuprofen 400 mg tablet 400 mg PO Q6H PRN (Reason: pain) Qty: 20 0RF ondansetron 4 mg tablet,disintegrating 4 mg PO TID PRN (Reason: nausea and vomiting) 5 Days Qty: 10 0RF No Action Wart Remover 40 % adhesive patch,medicated 1 appl topical Q48H Qty: 14 1RF propranolol 40 mg tablet 40 mg PO BID Qty: 180 1RF mineral oil [Fleet Mineral Oil] Enema 118 ml [place] DAILY PRN (Reason: constipation) Qty: 6384 1RF Rx Instructions: discard any unused portion peg 3350-electrolytes [Golytely] 236-22.74-6.74 -5.86 gram recon soln 240 ml PO Q10M Qty: 4000 0RF Rx Instructions: until fecal effluent is clear omeprazole 20 mg capsule,delayed release(DR/EC) 20 mg PO DAILY Qty: 90 3RF multivitamin Tablet 1 tab PO DAILY salicylic acid 3 % ointment 1 appl topical BID PRN (Reason: skin irritation) Qty: 30 3RF multivitamin Tablet 1 tab PO DAILY cefuroxime axetil 500 mg tablet 500 mg PO Q12H Qty: 10 0RF ondansetron 4 mg tablet,disintegrating 4 mg PO Q8H PRN (Reason: nausea and vomiting) Qty: 10 0RF Referrals: Josefina Quiñones PA-C [Primary Care Provider, Internal Medicine] - 06/14/25 Print Language: Slovenian
[2025-06-11] MEDS: iohexoL 350 MG/ML 100 ML INFUS..BTL IV (18:48)
[2025-06-11 20:09] VITALS: PULSE 113; RESP 26; TEMP 37.4; O2SAT 91
--- NOTE | 2025-06-11 21:05 | PM.IMHP ---
History of Present Illness Date of Service: 06/11/25 Chief Complaint: Fever 74-year-old female with a past medical history of osteoarthritis, psoriasis, hypertension, GERD, history of traumatic pneumothorax; presented to the hospital today with a chief complaint of nausea and vomiting over the past 3 days. Today she had a fever. Also reports having urinary frequency and urgency. Denies any abdominal pain. Patient denies any chest pain or palpitations. Review of all other systems is negative except mentioned above ER course: Per ER team, patient was febrile and tachycardic; CT and pelvis showed findings concerning for pyelonephritis. Urinalysis abnormal. Given ceftriaxone. [facility] Medical History (Updated 06/11/25 @ 19:51 by Nava Mendieta MD) Elevated parathyroid hormone Viral wart on toe Internal hemorrhoids Sigmoid diverticulosis History of mammogram (~09/02/24) Osteoporosis Achilles tendonitis Osteoarthritis of neck Traumatic pneumothorax Psoriasis Menopause Hay fever Seasonal allergies Hypertension Acid reflux Tremor Family History Father Cancer Mother Cancer Surgical History (Updated 03/23/25 @ 07:43 by Brittney Maddox) History of colonoscopy (~09/12/17) H/O removal of cyst History of tonsillectomy Social History Housing: House Alcohol intake: current Alcohol intake frequency: does not drink Patient Tobacco Use Status: Never used Tobacco Smoked in Last 30 Days: No Use of substances other than those prescribed or required for medical reasons: No Advance Directives: No Advance Directives Information Provided: No service: No Current occupational status: disabled 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 Cognitive needs: No Hearing needs: No Vision needs: Yes (rx glasses) Meds Allergies Allergy/AdvReac Type Severity Reaction Status Date / Time No Known Allergies Allergy Verified 06/11/25 15:57 Home Medications ?Medication ?Instructions ?Recorded ?Confirmed ?Last Taken ?Type multivitamin 1 tab PO DAILY 11/02/24 11/02/24 Unknown History multivitamin 1 tab PO DAILY 03/30/25 Unknown History Physical Exam Vital Signs and Narrative: Vital Signs: Last Vital Signs Temp 99.3 F 06/11/25 20:09 Pulse 113 H 06/11/25 20:09 Resp 26 H 06/11/25 20:09 BP 101/72 06/11/25 16:58 Pulse Ox 91 L 06/11/25 20:09 O2 Del Method Room Air 06/11/25 20:09 BMI result Body Mass Index 25.5 Gen: Appears be in no acute distress HEENT: NCAT, Moist mucosa. Pulmonary: Vesicular breath sounds, fair air entry CVS: Normal S1-S2 Abdomen: BS+, Soft, Nontender Extremities: Warm well perfused Neuro: Alert and awake. Results Labs 06/11/25 16:11 06/11/25 16:11 Labs: Laboratory Results - last 24 hr 06/11/25 06/11/25 06/11/25 16:10 16:11 16:13 MCV 86.5 MCH 28.6 MCHC 33.0 RDW 13.4 Plt Count 207 MPV 11.4 Immature Gran % (Auto) 0.5 H Neut % (Auto) 88.7 H Lymph % (Auto) 3.[address] [place] % (Auto) 6.1 Eos % (Auto) 0.4 Baso % (Auto) 0.4 Lymph # (Auto) 0.[address] [place] # (Auto) 0.5 Eos # (Auto) 0.0 Baso # (Auto) 0.0 Abs Immat Gran (auto) 0.04 H Absolute Neuts (auto) 7.0 Absolute Nucleated RBC 0.000 Nucleated RBC % (auto) 0.0 Anion Gap 16 Estim Creat Clear Calc 64.0 Estimated GFR > 60 Random Glucose 132 H Lactic Acid 1.9 Calcium 9.3 Total Bilirubin 1.0 AST 27 ALT 11 Alkaline Phosphatase 112 Total Protein 6.8 Albumin 4.2 Urine Color Urine Appearance Urine pH Ur Specific [place] Urine Protein Urine Glucose (UA) Urine Ketones Urine Blood Urine Nitrite Ur Leukocyte Esterase Urine RBC Urine WBC Ur Squamous Epith Cells Urine Bacteria Hyaline Casts COVID-19 (LIZANDRO) Negative COVID-19 Clin Com See Note Influenza Type A (KAITLIN) Negative Influenza Type B (KAITLIN) Negative Influenza A & B Note See Note 06/11/25 06/11/25 17:10 18:11 MCV MCH MCHC RDW Plt Count MPV Immature Gran % (Auto) Neut % (Auto) Lymph % (Auto) [place] % (Auto) Eos % (Auto) Baso % (Auto) Lymph # (Auto) [facility] # (Auto) Eos # (Auto) Baso # (Auto) Abs Immat Gran (auto) Absolute Neuts (auto) Absolute Nucleated RBC Nucleated RBC % (auto) Anion Gap Estim Creat Clear Calc Estimated GFR Random Glucose Lactic Acid 1.1 Calcium Total Bilirubin AST ALT Alkaline Phosphatase Total Protein Albumin Urine Color Yellow Urine Appearance Clear Urine pH 5.5 Ur Specific [place] <= 1.005 Urine Protein Negative Urine Glucose (UA) Negative Urine Ketones Negative Urine Blood Small (1+) H Urine Nitrite Positive H Ur Leukocyte Esterase Moderate (2+) H Urine RBC 0-2 Urine WBC >50 H Ur Squamous Epith Cells 0-2 Urine Bacteria 2+ Hyaline Casts 0-2 COVID-19 (LIZANDRO) COVID-19 Clin Com Influenza Type A (KAITLIN) Influenza Type B (KAITLIN) Influenza A & B Note Assessment and Plan (1) Pyelonephritis: Status: Acute Plan 74-year-old female with a past medical history of osteoarthritis, psoriasis, hypertension, GERD, history of traumatic pneumothorax; presented to the hospital today with a chief complaint of nausea and vomiting over the past 3 days. Today she had a fever. Noted to have pyelonephritis. Pyelonephritis: Continue ceftriaxone Follow-up cultures Nausea/vomiting: CT abdomen pelvis showed no acute GI findings. Supportive care. Advanced diet as tolerated. DVT prophylaxis: Lovenox Code status: Full code Quality Stroke Does the patient have a stroke diagnosis?: No VTE Prior VTE?: No VTE Risk Level:: Medical - moderate - high VTE Device Contraindication: Treatment Not Indicated VTE Drug Contraindication: N/A - Med Ordered
[2025-06-11 22:02] VITALS: PULSE 84; TEMP 37.6
[2025-06-11] MEDS: Lactated Ringers 1,000 ML 100 ML IVCONT (22:17)
[2025-06-11 22:59] VITALS: BP 100/47; PULSE 85; RESP 18; O2SAT 93
[2025-06-12 04:50] LABS: MANUAL DIFF FLAG NO
[2025-06-12 05:01] LABS: Hematocrit 35.6 % (37.0-47.0); Hemoglobin 11.5 g/dl (12.0-16.0); Imm Gran Abs Auto 0.01 X10*3/uL (0.00-0.03); Imm Gran Pct Auto 0.2 % (0.0-0.4); Lymphocytes Absolute Auto 0.5 X10*3/uL (1.2-4.9); Mean Corpuscular HGB Conc 32.3 g/dl (31.0-35.0); Mean Corpuscular Hemoglobin 28.8 pg (27.0-33.0); Mean Corpuscular Volume 89.0 fL (80.0-98.0); NRBC Abs Auto 0.000 X10*3/uL (0.0-0.012); NRBC Pct Auto 0.0 /100WBC (0.0-0.2); Platelet Count 136 X10*3/uL (160-400); Red Blood Count 4.00 X10*6/uL (4.20-5.50); White Blood Count 5.9 X10*3/uL (4.8-10.8)
[2025-06-12 05:02] LABS: Alanine Aminotransferase 12 U/L (0-31); Albumin Level 3.4 g/dL (3.5-5.0); Alkaline Phosphatase 92 U/L (39-117); Anion Gap 14 (12-20); Aspartate Amino Transferase 37 U/L (5-31); Blood Urea Nitrogen 12 mg/dL (9-16); Calcium 8.0 mg/dL (8.4-10.2); Carbon Dioxide 20 mmol/L (22-29); Chloride 113 mmol/L (96-108); Creatinine Clr Calc Pharmacy 68.9; Estimated Glomerular Filt Rate > 60; Potassium 3.9 mmol/L (3.3-5.1); Sodium 143 mmol/L (135-145); Total Protein 5.6 g/dL (6.5-8.0)
[2025-06-12 06:37] VITALS: BP 124/46; PULSE 71; RESP 13; TEMP 36.6; O2SAT 97
[2025-06-12] MEDS: 0.9 % Sodium Chloride Flush 3 ML SYRINGE IVFLUSH ×3 (07:30→22:22)
--- NOTE | 2025-06-12 07:30 | PC.NURSE ---
This RN entered the room to introduce self. at bedside with the patient. Both individuals are alert/oriented x4. asked this RN who is the doctor that's going to be caring for her this shift? She's supposed to be going home today . This RN stated DARY Patino is assuming care at this time. We continue to await an available bed on our Med/Tele unit due to a UTI & Pyelonephritis . Both patient and stated that they were unaware of the plan for admission, and that they were not spoken to by overnight hospitalist. Admission orders were entered [address] Elizondo. DARY Galeano to come to bedside to speak with the patient & family regarding admission plan. Care ongoing by this RN.
--- NOTE | 2025-06-12 09:41 | PHA.MEDREC ---
Pharmacy Consult ? Medication Reconciliation Pharmacy has completed the medication reconciliation. Spoke to patient at bedside, noted she takes propranolol, omeprazole, and a multivitamin at home
--- NOTE | 2025-06-12 09:58 | P.PNIM_ITS ---
Subjective Subjective Date of Service: 06/12/25 Interval History: Feels much better than eariler No longer with fever/chills No N/V Has been able to tolerate solid and liquids Denies abd pain Review of Systems Review of Systems: Yes all other systems are reviewed and are negative Physical Exam 2 Exam: Exam: General: AOx3, no acute distress Resp: CTA bilaterally CVS: S1, S2, RRR GI: +BS, NT, no distention Skin: Warm, dry Back: No CVA tenderness Neuro: Cranial nerves II-XII grossly intact bilaterally. Motor grossly intact bilaterally Extremities: No edema Psych: Appropriate affect Vital Signs: Vital Signs: Last Vital Signs Temp 97.9 F 06/12/25 06:37 Pulse 71 06/12/25 06:37 Resp 13 06/12/25 06:37 BP 124/46 L 06/12/25 06:37 Pulse Ox 97 06/12/25 06:37 O2 Del Method Room Air 06/12/25 06:37 BMI result Body Mass Index 25.5 Objective Data Active Medications Acetaminophen (Acetaminophen 325 Mg Tablet) 650 mg PO Q6H PRN PRN Reason: Pain, Mild 1-3,fever,headache Calcium Carbonate (Calcium Carbonate 750 Mg Tab.Chew) 750 mg PO Q4H PRN PRN Reason: Heartburn Enoxaparin Sodium (Enoxaparin Sodium 40 Mg/0.4 Ml Syringe) 40 mg SUBCUT Q24H REPLACED BY [facility] Last Admin: 06/11/25 22:18 Dose: 40 mg Documented By: ALONSO Ceftriaxone Sodium 1 gm/ (Sodium Chloride) 50 mls @ 100 mls/hr IV Q24H REPLACED BY [facility] Magnesium Hydroxide (Milk Of Magnesia 30 Ml Oral.Susp) 30 ml PO DAILY PRN PRN Reason: Constipation Melatonin (Melatonin 3 Mg Tablet) 6 mg PO BEDTIME PRN PRN Reason: Insomnia Ondansetron HCl (Ondansetron Hcl 4 Mg/2 Ml Vial) 4 mg IVPUSH Q8H PRN PRN Reason: Nausea and Vomiting Sodium Chloride (0.9 % Sodium Chloride Flush 3 Ml Syringe) 3 ml IVFLUSH QSHIFT REPLACED BY [facility] Last Admin: 06/12/25 01:38 Dose: Not Given Documented By: ALONSO Non-Admin Reason: IV Running Labs 06/12/25 04:43 06/12/25 04:43 Labs: Laboratory Results - last 24 hr 06/11/25 06/11/25 06/11/25 16:10 16:11 16:13 MCV 86.5 MCH 28.6 MCHC 33.0 RDW 13.4 Plt Count 207 MPV 11.4 Immature Gran % (Auto) 0.5 H Neut % (Auto) 88.7 H Lymph % (Auto) 3.9 L [place] % (Auto) 6.1 Eos % (Auto) 0.4 Baso % (Auto) 0.4 Lymph # (Auto) 0.3 L [place] # (Auto) 0.5 Eos # (Auto) 0.0 Baso # (Auto) 0.0 Abs Immat Gran (auto) 0.04 H Absolute Neuts (auto) 7.0 Absolute Nucleated RBC 0.000 Nucleated RBC % (auto) 0.0 Anion Gap 16 Estim Creat Clear Calc 64.0 Estimated GFR > 60 Random Glucose 132 H Lactic Acid 1.9 Calcium 9.3 Total Bilirubin 1.0 AST 27 ALT 11 Alkaline Phosphatase 112 Total Protein 6.8 Albumin 4.2 Urine Color Urine Appearance Urine pH Ur Specific [employer] Urine Protein Urine Glucose (UA) Urine Ketones Urine Blood Urine Nitrite Ur Leukocyte Esterase Urine RBC Urine WBC Ur Squamous Epith Cells Urine Bacteria Hyaline Casts COVID-19 (LIZANDRO) Negative COVID-19 Clin Com See Note Influenza Type A ([facility]LIN) Negative Influenza Type B ([facility]LIN) Negative Influenza A & B Note See Note 06/11/25 06/11/25 06/12/25 17:10 18:11 04:43 MCV 89.0 MCH 28.8 MCHC 32.3 RDW 13.7 Plt Count 136 L D MPV 11.2 Immature Gran % (Auto) 0.2 Neut % (Auto) 79.5 H Lymph % (Auto) 8.6 L [place] % (Auto) 11.5 H Eos % (Auto) 0.0 Baso % (Auto) 0.2 Lymph # (Auto) 0.5 L [place] # (Auto) 0.7 Eos # (Auto) 0.0 Baso # (Auto) 0.0 Abs Immat Gran (auto) 0.01 Absolute Neuts (auto) 4.7 Absolute Nucleated RBC 0.000 Nucleated RBC % (auto) 0.0 Anion Gap 14 Estim Creat Clear Calc 68.9 Estimated GFR > 60 Random Glucose 105 Lactic Acid 1.1 Calcium 8.0 L D Total Bilirubin 0.5 AST 37 H ALT 12 Alkaline Phosphatase 92 Total Protein 5.6 L Albumin 3.4 L Urine Color Yellow Urine Appearance Clear Urine pH 5.5 Ur Specific [employer] <= 1.005 Urine Protein Negative Urine Glucose (UA) Negative Urine Ketones Negative Urine Blood Small (1+) H Urine Nitrite Positive H Ur Leukocyte Esterase Moderate (2+) H Urine RBC 0-2 Urine WBC >50 H Ur Squamous Epith Cells 0-2 Urine Bacteria 2+ Hyaline Casts 0-2 COVID-19 (LIZANDRO) COVID-19 Clin Com Influenza Type A (KAITLIN) Influenza Type B (KAITLIN) Influenza A & B Note Assessment and Plan (1) Pyelonephritis: Status: Acute Plan 74-year-old female with a past medical history of osteoarthritis, psoriasis, hypertension, GERD, history of traumatic pneumothorax; presented to the hospital today with a chief complaint of nausea and vomiting over the past 3 days. Today she had a fever. Noted to have pyelonephritis. Pyelonephritis: As seen on CT of abd/pelvis Met sepsis criteria with tachycardia and tachypnea; no lactic acididosis or hypotension Continue ceftriaxone, day 2 Follow-up cultures Nausea/vomiting, resolved CT abdomen pelvis showed no acute GI findings Supportive care Tolerating full diet HTN Continue propanolol GERD PPI DVT prophylaxis: Lovenox Code status: Full code Pt requires continued hospitalization for treatment with IV abx of pyelonephritis with sepsis. Quality Stroke Does the patient have a stroke diagnosis?: No VTE Prior VTE?: No VTE Risk Level:: Medical - moderate - high VTE Device Contraindication: Treatment Not Indicated VTE Drug Contraindication: N/A - Med Ordered
--- NOTE | 2025-06-12 12:07 | MHC.CM.PN ---
IMM 06/12/25, Pt. lives with her Nabor, who is also her HCP. Pt. does not use home health services or DME. PCP is confirmed: Josefina Quiñones. Family will transport home at DC DCP: home, self care, CM to follow for DC needs.
[2025-06-12 12:48] VITALS: BP 126/49; PULSE 77; RESP 14; TEMP 36.6; O2SAT 95
[2025-06-12 17:41] VITALS: BP 126/48; PULSE 74; RESP 17; TEMP 36.7; O2SAT 97
[2025-06-12 18:01] VITALS: BMI 26.0
[2025-06-12 20:00] VITALS: BP 111/59; PULSE 93; RESP 19; TEMP 36.6; O2SAT 96
[2025-06-13 04:00] VITALS: BP 129/80; PULSE 93; RESP 18; TEMP 36.6; O2SAT 96
--- NOTE | 2025-06-13 07:31 | HO.PM.IMPN ---
Subjective Subjective Date of Service: 06/13/25 Interval History: Continue treating with ceftriaxone , currently awaiting culture and sensitivity Patient's at the bedside PT Patient states she has cough mucus and constipation Patient reports that anytime she is on antibiotics she gets constipated hence once constipation meds Review of Systems Review of Systems: Yes all other systems are reviewed and are negative Physical Exam Exam: Exam: General: AOx3, no acute distress, has some baseline tremors of the head and extremities Resp: CTA bilaterally CVS: S1, S2, RRR GI: +BS, NT, no distention Skin: Warm, dry Vital Signs: Vital Signs: Last Vital Signs Temp 97.9 F 06/13/25 04:00 Pulse 93 06/13/25 04:00 Resp 18 06/13/25 04:00 BP 129/80 06/13/25 04:00 Pulse Ox 96 06/13/25 04:00 O2 Del Method Room Air 06/13/25 04:00 BMI result Body Mass Index 26.0 Objective Data Active Medications Acetaminophen (Acetaminophen 325 Mg Tablet) 650 mg PO Q6H PRN PRN Reason: Pain, Mild 1-3,fever,headache Last Admin: 06/12/25 23:29 Dose: 650 mg Documented By: ANA Calcium Carbonate (Calcium Carbonate 750 Mg Tab.Chew) 750 mg PO Q4H PRN PRN Reason: Heartburn Enoxaparin Sodium (Enoxaparin Sodium 40 Mg/0.4 Ml Syringe) 40 mg SUBCUT Q24H [facility] Last Admin: 06/12/25 22:20 Dose: 40 mg Documented By: ANA Ceftriaxone Sodium 1 gm/ (Sodium Chloride) 50 mls @ 100 mls/hr IV Q24H [facility] Last Infusion: 06/12/25 18:36 Dose: Infused Documented By: DARYA Magnesium Hydroxide (Milk Of Magnesia 30 Ml Oral.Susp) 30 ml PO DAILY PRN PRN Reason: Constipation Melatonin (Melatonin 3 Mg Tablet) 6 mg PO BEDTIME PRN PRN Reason: Insomnia Multivitamins/Vitamin C (Multivitamin Tablet) 1 tab PO DAILY [facility] Omeprazole (Omeprazole 20 Mg Capsule.) 20 mg PO DAILY@0630 [facility] Last Admin: 06/13/25 06:12 Dose: Not Given Documented By: ANA Non-Admin Reason: declined at this time Ondansetron HCl (Ondansetron Hcl 4 Mg/2 Ml Vial) 4 mg IVPUSH Q8H PRN PRN Reason: Nausea and Vomiting Last Admin: 06/12/25 18:19 Dose: 4 mg Documented By: DARYA Propranolol HCl (Propranolol Hcl 40 Mg Tablet) 40 mg PO BID [facility]; Protocol Sodium Chloride (0.9 % Sodium Chloride Flush 3 Ml Syringe) 3 ml IVFLUSH QSHIFT [facility]HE[facility] Last Admin: 06/12/25 22:22 Dose: 3 ml Documented By: ANA Labs 06/12/25 04:43 06/12/25 04:43 Microbiology Microbiology Results: Microbiology 06/11/25 18:11 Blood Culture - Preliminary Blood - Venous No growth after 24 hours. 06/11/25 18:11 Blood Culture - Preliminary Blood - Venous No growth after 24 hours. Assessment and Plan (1) Pyelonephritis: Status: Acute Plan 74-year-old female with a past medical history of osteoarthritis, psoriasis, hypertension, GERD, history of traumatic pneumothorax; presented to the hospital today with a chief complaint of nausea and vomiting over the past 3 days was noted to have pyelonephritis and is being treated with IV antibiotics Pyelonephritis As seen on CT of abd/pelvis Met sepsis criteria with tachycardia and tachypnea; no lactic acididosis or hypotension Continue ceftriaxone, day 3 Follow-up cultures and deescalate according to clinical status and culture and sensitivity HTN Continue propanolol GERD PPI Patient states she gets constipated anytime she has these antibiotics and hence requesting constipation meds-placed her on scheduled and p.r.n. meds patient is aware that she can refused scheduled meds as needed. DVT prophylaxis: Lovenox Code status: Full code We will get PT eval prior to discharge Pt requires continued hospitalization for treatment with IV abx of pyelonephritis with sepsis. Based on culture and sensitivity, we will likely deescalate tomorrow and get her PT eval prior to discharge. Quality Stroke Does the patient have a stroke diagnosis?: No VTE Prior VTE?: No VTE Risk Level:: Medical - moderate - high VTE Device Contraindication: Treatment Not Indicated VTE Drug Contraindication: N/A - Med Ordered
[2025-06-13 07:35] VITALS: BP 116/75; PULSE 95; RESP 20; TEMP 36.3; O2SAT 98
[2025-06-13] MEDS: 0.9 % Sodium Chloride Flush 3 ML SYRINGE IVFLUSH ×3 (07:38→21:05)
--- NOTE | 2025-06-13 14:42 | MHC.CM.PN ---
EMR REVIEWED AND PER MD ROUNDS, PT HAS NOT YET BEEN MEDICALLY CLEARED FOR DC (CONTINUING IV ABT FOR PYELONEPHRITIS) CM WILL CONTINUE TO FOLLOW FOR ANY CHANGE TO DC PLAN/NEEDS.
[2025-06-13 15:53] VITALS: BP 110/63; PULSE 65; RESP 18; TEMP 36.4; O2SAT 96
[2025-06-13 19:12] VITALS: BP 136/62; PULSE 73; RESP 18; TEMP 36.3; O2SAT 94
[2025-06-14 03:39] VITALS: BP 139/65; PULSE 67; RESP 15; TEMP 36; O2SAT 94
--- NOTE | 2025-06-14 07:12 | P.PNIM_ITS ---
Subjective Subjective Date of Service: 06/14/25 Physical Exam 2 Vital Signs: Vital Signs: Last Vital Signs Temp 96.8 F 06/14/25 03:39 Pulse 67 06/14/25 03:39 Resp 15 06/14/25 03:39 BP 139/65 06/14/25 03:39 Pulse Ox 94 06/14/25 03:39 O2 Del Method Room Air 06/14/25 03:39 BMI result Body Mass Index 26.0 Objective Data Active Medications Acetaminophen (Acetaminophen 325 Mg Tablet) 650 mg PO Q6H PRN PRN Reason: Pain, Mild 1-3,fever,headache Last Admin: 06/13/25 21:15 Dose: 650 mg Documented By: ANA Bisacodyl (Bisacodyl 5 Mg Tablet.) 5 mg PO BEDTIME [facility] Last Admin: 06/13/25 21:02 Dose: 5 mg Documented By: ANA Calcium Carbonate (Calcium Carbonate 750 Mg Tab.Chew) 750 mg PO Q4H PRN PRN Reason: Heartburn Enoxaparin Sodium (Enoxaparin Sodium 40 Mg/0.4 Ml Syringe) 40 mg SUBCUT Q24H [facility] Last Admin: 06/13/25 21:02 Dose: 40 mg Documented By: ANA Ceftriaxone Sodium 1 gm/ (Sodium Chloride) 50 mls @ 100 mls/hr IV Q24H [facility] Last Infusion: 06/13/25 18:05 Dose: Infused Documented By: VIANNEY Magnesium Hydroxide (Milk Of Magnesia 30 Ml Oral.Susp) 30 ml PO DAILY PRN PRN Reason: Constipation Magnesium Hydroxide (Milk Of Magnesia 30 Ml Oral.Susp) 15 ml PO BEDTIME PRN PRN Reason: Constipation Melatonin (Melatonin 3 Mg Tablet) 6 mg PO BEDTIME PRN PRN Reason: Insomnia Multivitamins/Vitamin C (Multivitamin Tablet) 1 tab PO DAILY [facility] Last Admin: 06/13/25 07:39 Dose: 1 tab Documented By: VIANNEY Omeprazole (Omeprazole 20 Mg Capsule.) 20 mg PO DAILY@0630 [facility] Last Admin: 06/14/25 06:00 Dose: 20 mg Documented By: ANA Ondansetron HCl (Ondansetron Hcl 4 Mg/2 Ml Vial) 4 mg IVPUSH Q8H PRN PRN Reason: Nausea and Vomiting Last Admin: 06/12/25 18:19 Dose: 4 mg Documented By: DARYA Polyethylene Glycol (Polyethylene Glycol 3350 17 Gm Powd.Pack) 17 gm PO DAILY [facility] Last Admin: 06/13/25 18:08 Dose: 17 gm Documented By: VIANNEY Propranolol HCl (Propranolol Hcl 40 Mg Tablet) 40 mg PO BID [facility]; Protocol Last Admin: 06/13/25 21:02 Dose: 40 mg Documented By: ANA Sodium Chloride (0.9 % Sodium Chloride Flush 3 Ml Syringe) 3 ml IVFLUSH QSHIFT [facility] Last Admin: 06/13/25 21:05 Dose: 3 ml Documented By: ANA Labs 06/12/25 04:43 06/12/25 04:43 Microbiology Microbiology Results: Microbiology 06/11/25 18:11 Blood Culture - Preliminary Blood - Venous No growth after 48 hours. 06/11/25 18:11 Blood Culture - Preliminary Blood - Venous No growth after 48 hours. 06/12/25 Unknown Urine Culture - Final Urine clean catch - Clean Catch Midstream Quality Stroke Does the patient have a stroke diagnosis?: No VTE Prior VTE?: No VTE Risk Level:: Medical - moderate - high VTE Device Contraindication: Treatment Not Indicated VTE Drug Contraindication: N/A - Med Ordered
[2025-06-14] MEDS: 0.9 % Sodium Chloride Flush 3 ML SYRINGE IVFLUSH (07:59)
[2025-06-14 08:00] VITALS: BP 138/66; PULSE 58; RESP 20; TEMP 36.1; O2SAT 96
[2025-06-14 08:13] VITALS: PULSE 55
--- NOTE | 2025-06-14 12:33 | P.DS_ITS ---
DS: Providers Provider Date of Service: 06/14/25 Date of admission: 06/11/25 21:03 Date of discharge: 06/14/25 Primary care physician: Josefina Quiñones PA-C DS: Diagnosis Discharge Diagnosis (1) Pyelonephritis: Status: Acute DS: Summary Hospital Course Hospital Course: Sepsis secondary to Right-sided ascending Pyelonephritis 74-year-old female with a past medical history of osteoarthritis, psoriasis, hypertension, GERD, history of traumatic pneumothorax; presented to the hospital today with a chief complaint of nausea and vomiting over the past 3 days was noted to have pyelonephritis as evident on CT imaging of abdomen and pelvis POA. Met sepsis criteria with tachycardia, tachypnea however did not have lactic acidosis or hypotension . Patient was treated with ceftriaxone for 3 days and was transitioned to levofloxacin 4 more days to complete a total 7 day course of antibiotics. Patient asymptomatic back to her baseline and advised to follow up with outpatient PCP Head tremors-patient takes propranolol, however she reports having severe reaction to Botox, propranolol and also another medication that she can not name. Advised her to follow up with outpatient Neurology HTN- continued home meds, normotensive GERD-PPI Severe constipation-patient prescribed constipation meds, needs to follow up with outpatient PCP for further management Patient states she gets constipated anytime she has these antibiotics and hence requesting constipation meds-placed her on scheduled and p.r.n. meds patient is aware that she can refused scheduled meds as needed. DVT prophylaxis: Lovenox Code status: Full code Patient was evaluated by PT and did not need any services. Patient stable to go back to her home and followed up with primary care. Time spent discussing smoking cessation with patient: more than 10 minutes Status at Discharge Functional status at discharge: independent ambulation Time Attestation Discharge Coordination Time (in mins): 45 Quality: Safe Use of Opioids Does Pt have an Active Cancer Diagnosis on the Problem List?: No Quality: Stroke Does the patient have a stroke diagnosis?: No Physical Exam Vital Signs: Vital Signs: Last Vital Signs Temp 96.9 F 06/14/25 08:00 Pulse 55 06/14/25 08:13 Resp 20 06/14/25 08:00 BP 138/66 06/14/25 08:00 Pulse Ox 96 06/14/25 08:00 O2 Del Method Room Air 06/14/25 08:00 BMI result Body Mass Index 26.0 DS: Data Data Completed and Pending Labs on day of discharge: Preliminary micro results at discharge 06/11/25 18:11 Blood Culture - Preliminary Blood - Venous No growth after 48 hours. 06/11/25 18:11 Blood Culture - Preliminary Blood - Venous No growth after 48 hours. Discharge Plan Discharge Anticipated Discharge Date/Time: 06/14/25 11:21 Patient Disposition: Home, Self-Care Discharge Diagnosis: Sepsis secondary to R sided ascending pyelonephritis Referrals: Josefina Quiñones PA-C [Primary Care Provider, Internal Medicine] - 06/14/25 Discharge Medications: New ibuprofen 400 mg tablet 400 mg PO Q6H PRN (Reason: pain) Qty: 20 0RF ondansetron 4 mg tablet,disintegrating 4 mg PO TID PRN (Reason: nausea and vomiting) 5 Days Qty: 10 0RF polyethylene glycol 3350 17 gram Powder In Packet 17 g PO DAILY Qty: 30 0RF Antacid Ext Str (calcium carb) 300 mg (750 mg) Tablet,Chewable 2.5 tab PO Q4H PRN (Reason: Heartburn) 30 Days Qty: 30 0RF magnesium hydroxide [Milk of Magnesia] 400 mg/5 mL Suspension 15 ml PO BEDTIME PRN (Reason: Constipation) 30 Days Qty: 30 0RF bisacodyl 5 mg Tablet,Delayed Release (Dr/Ec) 5 mg PO BEDTIME 30 Days Qty: 30 0RF levofloxacin 750 mg tablet 750 mg PO Q24H 4 Days Qty: 4 0RF Continued propranolol 40 mg tablet 40 mg PO BID Qty: 180 1RF omeprazole 20 mg capsule,delayed release(DR/EC) 20 mg PO DAILY@0630 multivitamin Tablet 1 tab PO DAILY Discharge Orders: Discharge Order (Routine); Ordered 06/14/25 Ordered By: Francisca Hoffman Diet: Low salt diet Activity on Discharge: As tolerated Stand Alone Forms: Patient Portal Discharge page Print Language: Bangladeshi Care Plan Goals: Please follow-up PCP within a week after discharge Please follow up with your neurologist regarding your head tremors as he reported being sensitive to propranolol, Botox, another medication outpatient. Please complete 4 more days of antibiotics to complete 7 day course of antibiotics You said you were constipated and hence I have prescribed some constipation medications You said you have nausea whenever you take antibiotics hence please take the nausea medications before taking antibiotics. Health Concerns: See above Plan of Treatment: See above Assessment: See above Patient Instructions: Kidney Infection (ED)
--- NOTE | 2025-06-14 12:45 | MHC.CM.PN ---
DP: PT HAS BEEN MEDICALLY CLEARED FOR DC HOME, NO SERVICES. PT HAS OWN RIDE HOME.
--- NOTE | 2025-06-18 17:17 | P.CDIM_ITS ---
PROVIDER RESPONSE TEXT: To clarify, the appropriate diagnosis supported by the clinical indicators: Acute Pyelonephritis QUERY TEXT: PHYSICIAN'S DOCUMENTATION REQUEST Date of Query: 06/14/2025 07:30 AM EST Patient Name: BRONSON ANDERSON Admit Date: 06/12/2025 Dear Francisca Hoffman MD, A review of the medical record indicates additional documentation may be needed. Please review below and update the documentation accordingly. Clinical Indicators: Progress note 06/13/25 - Pyelonephritis Met sepsis criteria. Continue Ceftriaxone, day 3 Follow up cultures. Please clarify any further specificity to the documented Pyelonephritis: Possible options might include: Acute Pyelonephritis Chronic Pyelonephritis Nonobstructive Pyelonephritis Pyelonephritis due to device please specify Other specifics Other (explain) Clinically unable to determine (explain) Thank you, Jeana Del Valle, CCS, CDIS Use of terms such as suspected, likely, concern for, or probable (associated with a specific diagnosis that is being evaluated, monitored, or treated as if it exists) are acceptable and can be coded in the inpatient setting, when documented at the time of discharge. Please use your independent medical judgment in providing your response. THIS QUERY IS PART OF THE PERMANENT MEDICAL RECORD
== END 2025-06-14 14:03 | disposition home or self-care (01) | DRG 872 ==
LOC: HO.ED 20:59 → HO.EDOVER 21:46 → HO.S3 06-12 16:50
PROVIDERS: Physician Assistant; Admitting Provider Hospitalist; Emergency Provider Emergency Medicine Emergency Medical Services; PCP Physician Assistant Medical; Visit Provider Student in an Organized Health Care Education/Training Program
DX: A41.9 Sepsis, unspecified organism (principal); N10 Acute pyelonephritis; L40.9 Psoriasis, unspecified; K21.9 Gastro-esophageal reflux disease without esophagitis; K59.00 Constipation, unspecified; I10 Essential (primary) hypertension; R25.1 Tremor, unspecified; Z20.822 Contact with and (suspected) exposure to COVID-19; Z79.899 Other long term (current) drug therapy
CPT/HCPCS: 36415; 71046; 74177; 80053; 81001; 83605; 85025; 87040; 87086; 87502; 87635; 93005; 97161; 99285; J0696; J1650; J2405; J7120; Q9967

== ENCOUNTER → 2025-06-11 15:51 | Outpatient (BNV) | payer MEDICARE, OTHER, SELFPAY | PROVIDERS: Admitting Provider Hospitalist; Emergency Provider Emergency Medicine Emergency Medical Services; PCP Physician Assistant Medical; Visit Provider Internal Medicine Cardiovascular Disease | DX: I49.1 Atrial premature depolarization (principal) | CPT/HCPCS: 93010 ==

== ENCOUNTER → 2025-06-11 21:03 | Outpatient (BNV) | payer MEDICARE, OTHER, SELFPAY | PROVIDERS: Admitting Provider Hospitalist; Emergency Provider Emergency Medicine Emergency Medical Services; PCP Physician Assistant Medical; Visit Provider Hospitalist | DX: N12 Tubulo-interstitial nephritis, not specified as acute or chronic (principal) | CPT/HCPCS: 99232 ==

== ENCOUNTER 2025-06-20 13:49 | Outpatient (AMB) | payer MEDICARE, OTHER, SELFPAY ==
--- NOTE | 2025-06-20 13:51 | A.OFFPC_ITS ---
Vital Signs 06/20/25 13:57 Weight 145 lb 0.2 oz BP 133/73 Blood Pressure Location Lt brachial Pulse 63 Pulse Source Pulse Oximeter Temp 97.2 F Pulse Oximetry (%) 92 Oxygen Delivery Method Room Air Intake Visit Reasons: Hospital Discharge Intake Note: Visit Reason: TCM Intake Note: Patient is here for hospital discharge follow up. Patient was discharged from [facility] Lingo Cleaner Required: No Pumping Supervisor: Not Required per policy Accompanied by: Self / Same As Patient Allergies ondansetron (From Zofran) Adverse Reaction (Mild, Verified 06/20/25 14:30) constiptaion cefuroxime Adverse Reaction (Verified 06/20/25 14:30) Constipation Medication List - Last Reconciled 06/20/25 by Josefina Quiñones PA-C bisacodyl 5 mg PO BEDTIME 30 days calcium carbonate (Antacid Ext Str (calcium carb)) 2.5 tabs PO Q4H PRN 30 days ibuprofen 400 mg PO Q6H PRN levofloxacin 750 mg PO Q24H 4 days magnesium hydroxide (Milk of Magnesia) 15 mL PO BEDTIME PRN 30 days multivitamin 1 tab PO DAILY omeprazole 20 mg PO DAILY@0630 ondansetron 4 mg PO TID PRN 5 days polyethylene glycol 3350 17 grams PO DAILY propranolol 40 mg PO BID Tobacco use date assessed: 11/02/24 Dental Screening Dental Screen Date: 11/02/24 [facility] HPI Comments History of Present Illness Details Patient presents to the office for a TCM visit. Date of admission:06/11/2025 Date of discharge:06/14/25 This is a Follow-up from admission at [facility]/Hospital Course/Discharge Summary: The patient is a 74-year-old female presenting for a hospital discharge follow- up. She was recently hospitalized from 06/11/25 to 06/14/25 for pyelonephritis, which was diagnosed via CT of the abdomen and pelvis. She presented to the hospital with a chief complaint of nausea and vomiting for three days prior to admission. The patient reports she did not have any typical symptoms of a urinary tract infection prior to her hospitalization. During her hospitalization, the patient met sepsis criteria with tachycardia and tachypnea, but did not have lactic acidosis or hypotension. She was treated with intravenous ceftriaxone for three days and was transitioned to oral levofloxacin for an additional four days to complete a seven-day course, which she will finish tonight. Blood cultures drawn during her admission were negative. The patient's past medical history is significant for osteoarthritis, psoriasis, hypertension, GERD, and a history of traumatic pneumothorax. She has a history of hand tremors for which she takes propranolol but reports severe reactions to Botox, propranolol, and another unnamed medication. She reports psoriasis on her scalp that is not improving with medicated shampoo. The patient also notes she becomes constipated when taking certain antibiotics and is currently taking Dulcolax at night to manage this side effect. Discharged to/Current Location: Home Lives with: and adult Son Diagnosis: Acute right-sided pyelonephritis without sepsis Procedures performed: CT scan abdomen pelvis with IV contrast revealed right p yelonephritis New medications: Levofloxacin finishing tonight Discontinued medications: No medications were discontinued Change medications/dosing: No change in medication or dosing Pending labs: None Pending diagnostic test: None Any Follow-up Labs required? None Any Follow-up Diagnostic test required? None How are you feeling? Much better, appetite is still not the best but improving Are you in any pain or discomfort? never Do you have any questions about your condition or discharge instructions? not at this time Were you able to get your medications filled? yes and taking as prescribed Do you have any questions about your medications? 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 yes with PCP If home health was ordered, have they contact you? Patient not interested in home health aide, VNA, [employer], meals on wheels or any outpatient services at this time Any outpatient services, if so, are you scheduled? Patient not interested Are there any additional resources like transportation you might need during her recovery? - VNA? Not at this time - [employer]? Not at this time - Meals on wheels? Not at this time Educational need/resources: What support system do you have? and Son [facility] Medical History (Updated 06/20/25 @ 14:54 by Josefina Quiñones PA-C) Healthcare maintenance Constipation Hospital discharge follow-up Elevated parathyroid hormone Viral wart on toe Internal hemorrhoids Sigmoid diverticulosis History of mammogram (~09/02/24) Osteoporosis Achilles tendonitis Osteoarthritis of neck Traumatic pneumothorax Psoriasis Menopause Hay fever Seasonal allergies Hypertension Acid reflux Tremor Surgical History History of colonoscopy (~09/12/17) H/O removal of cyst History of tonsillectomy Family History Father Cancer Mother Cancer Social History Household Members: Spouse Housing: House Do you presently have visiting nurse or other home services: No Alcohol intake: current Alcohol intake frequency: does not drink Patient Tobacco Use Status: Never used Tobacco service: No Current occupational status: disabled 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 1. Little interest or pleasure in doing things: not at all 2. Feeling down, depressed, or hopeless: not at all 3. Trouble falling or staying asleep, or sleeping too much: not at all 4. Feeling tired or having little energy: not at all 5. Poor appetite or overeating: not at all 6. Feeling bad about yourself - or that you are a failure or have let yourself or your family down: not at all 7. Trouble concentrating on things, such as reading the newspaper or watching television: not at all 8. Moving or speaking so slowly that other people could have noticed. Or the opposite - being so fidgety or restless that you have been moving around a lot more than usual: not at all 9. Thoughts that you would be better off or of hurting yourself in some way: not at all Total score: 0 Depression Screening Interpretation: Negative Depression Screening Done: Yes 72423 - PHQ-9 Billing: Yes Source: Developed by Drs. Jerzy Lockhart, Jeanine Valdivia, Enio Rosario and colleagues, with an educational ryann from [employer]. Thrive Questionnaire Date Thrive assessed: 06/12/25 I am a: Patient What is your living situation today?: I have a steady place to live Within the past 12 months, did the food you bought not last and you didn't have the money to get more?: Never true Within the past 12 months, did you worry whether your food would run out before you got money to buy more?: Never true Do you have trouble paying for medicines?: No Do you have trouble getting transportation to medical appointments?: No Do you have trouble paying your heating and electricity bill?: No Do you have trouble taking care of your child, family member or friend?: No Do you have trouble with day-to-day activities such as bathing, preparing meals, shopping, managing finances, etc.?: No Are you currently unemployed and looking for a job?: No Are you interested in more education?: No Please select the resources that you would like help with: None THRIVE Score: 0 AUDIT C Alcohol Use Questionnaire (AUDIT-C) 1. How often do you have a drink containing alcohol?: Never 3. How often do you have six or more drinks on one occasion?: Never Total Score: 0 Score Reviewed/Action Taken: No STAN-7 AMB Questionnaire STAN-7 Date STAN - 7 assessed: 11/02/24 Feeling nervous, anxious, or on edge: 0 = Not at all Not being able to stop or control worryin = Not at all Worrying too much about different things: 0 = Not at all Trouble relaxin = Not at all Being so restless that it is hard to sit still: 0 = Not at all Becoming easily annoyed or irritable: 0 = Not at all Feeling afraid as if something awful might happen: 0 = Not at all Total STAN-7 score (0-4 normal; 5-9 mild; 10-14 moderate; 15-21 severe): 0 Source: Developed by Drs. Jerzy Lockhart, Jeanine Valdivia, Enio Rosario and colleagues, with an educational ryann from [employer]. STAN-7 Assessment Billing STAN-7 Assessment Tool: STAN-7 Assessment 02314 Review of Systems Const Details: - General: Reports feeling much better. - Appetite is improving but not back to baseline. - Denies pain or discomfort. - Neurological: Reports issues with sleeping. - GI: Denies nausea and vomiting currently. - Reports constipation with certain antibiotics. - : Reports nocturia, which she associates with taking her antibiotic at night. - Dermatologic: Reports psoriasis on the scalp that is not healing and flakes. All systems reviewed & are unremarkable except as noted in HPI and below Physical exam (Primary Care) Vital Signs: Last Vital Signs Temp 97.2 F 06/20/25 13:57 Pulse 63 06/20/25 13:57 BP 133/73 06/20/25 13:57 Pulse Ox 72 L 06/20/25 13:57 Vitals signs have been reviewed. Care Plan Goal for BP management: <140/90 at Goal Tobacco/Smoking Status: Tobacco use Status Tobacco use date assessed 11/02/24 06/20/25 13:53 Patient Tobacco Use Status Never used Tobacco 06/20/25 13:53 PHQ-9: PHQ-9 Score PHQ-9: Total score 0 06/20/25 14:05 Depression Screening Interpretation: Negative Thrive Assessment: Date of Thrive Assessment Date Thrive assessed 06/12/25 06/20/25 13:53 Const Other: Appearance: Alert. Oriented X3. No acute distress. Head: Normal external exam. Normocephalic. Atraumatic. Eyes: Pupils are equal, round, and reactive to light. Extraocular movements intact. Conjunctiva and sclera normal. Eyelids normal. Throat: Pharynx normal. Uvula midline. Moist mucous membranes. Neck: Normal inspection. Neck supple. Full range of motion. Cardiovascular: Normal heart rate and rhythm. Respiratory: No respiratory distress. Painless inspiration. Back: Full range of motion noted. Skin: Skin warm and dry. Normal skin color. Extremities: Extremities exhibit normal range of motion. Neuro: Oriented X 3. No motor deficit. No sensory deficit. Reflexes normal. T remors noted. Office Procedures Flu Questionnaire Does the patient have a severe egg allergy?: No Does the patient have severe life threatening allergies?: No Does the patient have a fever or illness today?: No Has the patient ever had Guillain-Doran Syndrome?: No Has the patient ever had any past reaction to a flu shot?: No Immunizations Fluarix [id number] (PF) 45 mcg (15 mcg x 3)/0.5 mL IM syringe Performing Provider: Josefina Quiñones PA-C Performing Location: [facility] Documented (not given) by: Karena Fulton on 06/20/25 13:55 Dose Route Admin Location Dispensed Lot Number Expiration Date [employer] Manager [employer] 0.5 mL IM mL VIS Given Date VIS Provided VIS Publication Date 06/20/25 Single Vaccine 24 Eligibility Eligibility Date Funding Source Results Reviewed Results Reviewed: - Imaging: CT of the abdomen and pelvis during recent hospitalization showed pyelonephritis. - Labs: Blood cultures from hospitalization were negative. - Kidney function during hospitalization was noted to be fine. Coding Level of Care Code TCM High MDM <= 7 Days Complex EM visit Add On G2211 Diagnoses Hospital discharge follow-up Z09 Tremor R25.1 Psoriasis L40.9 Constipation K59.00 Healthcare maintenance Z00.00 Additional Codes STAN-7 Assessment Billing - STAN-7 Assessment Tool: STAN-7 Assessment 84500 ([id number]) PHQ-9 - 05429 - PHQ-9 Billing: Yes ([id number]) Assessment & Plan Assessment & Plan (1) Hospital discharge follow-up: Code(s): Z09 - Encounter for follow-up examination after completed treatment for conditions other than malignant neoplasm Category: Medical Plan: The patient is recovering well from a recent hospitalization for right-sided pyelonephritis. She has been compliant with and will complete her 7-day course of antibiotics tonight. To confirm resolution of the infection, a urinalysis will be sent from the office today and an order for basic blood work will be placed for the patient to complete this week. The patient was educated that pyelonephritis can present atypically without classic UTI symptoms, and to be aware of symptoms like weakness, anorexia, or confusion as potential signs of recurrence. A follow-up will be scheduled sooner than the planned November appointment if lab results are abnormal. (2) Tremor: Code(s): R25.1 - Tremor, unspecified Category: Medical Plan: The patient has a history of hand tremor and reported a severe reaction to propranolol and Botox in the past. A referral will be placed to a neurologist at [facility] per her request for further evaluation. (3) Psoriasis: Comment: Scalp Code(s): L40.9 - Psoriasis, unspecified Category: Medical Plan: The patient reports psoriasis on her scalp that has not responded to medicated shampoo. A referral to dermatology has been placed for further management. (4) Constipation: Code(s): K59.00 - Constipation, unspecified Category: Medical Plan: The patient reports a history of constipation caused by certain antibiotics and the anti-nausea medication, ondansetron. She finds relief with tlzf-com-xorrgnk slow-release bisacodyl (Dulcolax). She has been advised to continue using this as needed. Constipation will be noted as a side effect in her chart for these medications, but not as a true allergy, to allow for their use in the future if medically necessary. (5) Healthcare maintenance: Code(s): Z00.00 - Encounter for general adult medical examination without abnormal findings Category: Medical Plan: The patient reports having received her flu and COVID-19 vaccinations at [facility]. The clinic staff will be asked to verify that the documentation has been received and updated in her chart. Plan Plan Patient was informed and verbally consented to the use of an ambient scribe for clinic note documentation during this visit. 1. Acute Pyelonephritis The patient is recovering well from a recent hospitalization for right-sided pyelonephritis. She has been compliant with and will complete her 7-day course of antibiotics tonight. To confirm resolution of the infection, a urinalysis will be sent from the office today and an order for basic blood work will be placed for the patient to complete this week. The patient was educated that pyelonephritis can present atypically without classic UTI symptoms, and to be aware of symptoms like weakness, anorexia, or confusion as potential signs of recurrence. A follow-up will be scheduled sooner than the planned November appointment if lab results are abnormal. 2. Hand Tremor The patient has a history of hand tremor and reported a severe reaction to propranolol and Botox in the past. A referral will be placed to a neurologist at [facility] per her request for further evaluation. 3. Psoriasis The patient reports psoriasis on her scalp that has not responded to medicated shampoo. A referral to dermatology has been placed for further management. 4. Medication-Induced Constipation The patient reports a history of constipation caused by certain antibiotics and the anti-nausea medication, ondansetron. She finds relief with lpee-gdc-qtopbgs slow-release bisacodyl (Dulcolax). She has been advised to continue using this as needed. Constipation will be noted as a side effect in her chart for these medications, but not as a true allergy, to allow for their use in the future if medically necessary. 5. Health Maintenance The patient reports having received her flu and COVID-19 vaccinations at [facility]. The clinic staff will be asked to verify that the documentation has been received and updated in her chart. I reviewed the patient's recent hospitalization for pyelonephritis. I explained that pyelonephritis can sometimes present without the usual UTI symptoms and that she should be aware that future infections might manifest as weakness, confusion, or loss of appetite. I advised her to finish the full course of her current antibiotic, levofloxacin. I ordered a repeat urinalysis and basic blood work to ensure the infection has fully resolved. We discussed her side effect of constipation with certain medications, and I documented this in her chart while advising her that these medications are important and can be used in the future with concurrent management for constipation. Based on her request, I placed referrals to dermatology for her scalp psoriasis and to a neurologist at [facility] for her hand tremor. I informed her that her next scheduled follow-up is in November, but I will contact her to come in sooner if her blood work is abnormal. Orders: Orders Influenza [id number] Immunization Today Z23 - Encounter for immunization Comprehensive Met. Panel Today Z00.00 - Encounter for general adult medical examination without abnormal findings Complete Blood Count no Diff Today Z00.00 - Encounter for general adult medical examination without abnormal findings UA CC w/rflx Micro + Cult Today Z00.00 - Encounter for general adult medical examination without abnormal findings Magnesium Today Z00.00 - Encounter for general adult medical examination without abnormal findings Referrals Dermatology Referral L40.9 - Psoriasis, unspecified Neurology Referral R25.1 - Tremor, unspecified Medications: New Fluarix [id number] (PF) (flu vac ts 2024-(6mos up)-PF) 0.5 mL IM ONCE 0.5 mL 0 RF NS Z23 - Encounter for immunization Patient Instructions: - Make sure to finish your entire 7-day course of the Levofloxacin antibiotic. - Please go for your blood work anytime this week. - You do not need to fast (skip meals) for this test. - We collected a urine sample in the office today to check on the infection. - We have sent referrals to a neurologist for your hand tremors and to a rail equipment operator for your scalp psoriasis. - Their offices will call you to set up an appointment. - For constipation, you can continue to take hcju-wae-hhlxukj medicine like Dulcolax as needed. - Your next follow-up appointment is in November, but we will call you to come back sooner if your blood test results are abnormal. - Remember that a kidney infection might not feel like a typical bladder infection. - If you start to feel very weak, lose your appetite, or become confused, please seek medical care.
[2025-06-20 13:57] VITALS: BP 133/73; PULSE 63; TEMP 36.2; O2SAT 92
== END 2025-06-20 14:33 | disposition home or self-care (01) ==
LOC: HO.HMCSH 13:49
PROVIDERS: PCP Physician Assistant Medical; Visit Provider Physician Assistant Medical
DX: R25.1 Tremor, unspecified (principal); L40.9 Psoriasis, unspecified; K59.00 Constipation, unspecified; Z23 Encounter for immunization

== ENCOUNTER 2025-06-20 13:49 | Outpatient (REF) | payer MEDICARE, OTHER, SELFPAY ==
[2025-06-20 18:34] LABS: Appearance Urine Clear; Glucose Urine UA Negative (Negative); PH 5.5 (5.0-9.0); Specific Gravity - Urine 1.015 (1.005-1.025)
== END 2025-06-20 13:50 | disposition home or self-care (01) ==
LOC: HO.LAB 13:49
PROVIDERS: PCP Physician Assistant Medical; Visit Provider Physician Assistant Medical
DX: Z09 Encounter for follow-up examination after completed treatment for conditions other than malignant neoplasm (principal); R25.1 Tremor, unspecified; L40.9 Psoriasis, unspecified; K59.00 Constipation, unspecified; Z13.31 Encounter for screening for depression; N10 Acute pyelonephritis
CPT/HCPCS: 81003; 96127; 99212

== ENCOUNTER 2025-06-21 11:14 | Outpatient (REF) | payer MEDICARE, OTHER, SELFPAY ==
[2025-06-21 11:41] LABS: Hematocrit 47.5 % (37.0-47.0); Hemoglobin 15.0 g/dl (12.0-16.0); Mean Corpuscular HGB Conc 31.6 g/dl (31.0-35.0); Mean Corpuscular Hemoglobin 27.8 pg (27.0-33.0); Mean Corpuscular Volume 88.0 fL (80.0-98.0); NRBC Abs Auto 0.000 X10*3/uL (0.0-0.012); NRBC Pct Auto 0.0 /100WBC (0.0-0.2); Platelet Count 349 X10*3/uL (160-400); Red Blood Count 5.40 X10*6/uL (4.20-5.50); White Blood Count 6.3 X10*3/uL (4.8-10.8)
[2025-06-21 12:19] LABS: Alanine Aminotransferase 17 U/L (0-31); Albumin Level 4.4 g/dL (3.5-5.0); Alkaline Phosphatase 122 U/L (39-117); Anion Gap 14 (12-20); Aspartate Amino Transferase 23 U/L (5-31); Blood Urea Nitrogen 14 mg/dL (9-16); Calcium 9.7 mg/dL (8.4-10.2); Carbon Dioxide 25 mmol/L (22-29); Chloride 107 mmol/L (96-108); Estimated Glomerular Filt Rate 56; Magnesium 2.2 mg/dL (1.6-2.6); Potassium 4.6 mmol/L (3.3-5.1); Sodium 141 mmol/L (135-145); Total Protein 7.0 g/dL (6.5-8.0)
[2025-06-21 12:52] LABS: Parathyroid Hormone Intact 128.8 pg/mL (8.7-77.1)
== END 2025-06-21 11:15 | disposition home or self-care (01) ==
LOC: HO.LAB 11:14
PROVIDERS: PCP Physician Assistant Medical; Visit Provider Physician Assistant Medical
DX: Z00.00 Encounter for general adult medical examination without abnormal findings (principal); R79.89 Other specified abnormal findings of blood chemistry
CPT/HCPCS: 36415; 80053; 83735; 83970; 85027